=== PATIENT | female | born 1955 | race Caucasian/White ===

== ENCOUNTER → 2017-02-24 11:29 | Outpatient (CLI) | payer MEDICARE, SELFPAY ==
[2017-02-24 11:30] VITALS: BP 128/76; PULSE 69; RESP 16; TEMP 36.4; O2SAT 100; BMI 26.8
[2017-02-24 13:42] LABS: Absolute Lymphocyte Count 2.79 X10^3/ul (0.83-4.51); Absolute Neutrophil Count 3.2 X10^3/uL (2.0-7.7); Basophil# 0.07 X10^3/uL; Eosinophil# 0.26 X10^3/uL; Eosinophils% 3.8 % (0-5); Hematocrit 34.8 % (37-47); Hemoglobin 10.6 g/dl (12.0-15.0); Lymphocyte # 2.79 X10^3/ul (4.0); Lymphocyte % 40.9 % (19-41); Mean Corp Hgb Conc 30.5 g/gl (32-36); Mean Corpuscular Hgb 25.4 pg (27.0-32.0); Mean Corpuscular Volume 83.3 fL (81-99); Mean Platelet Vol. 10.7 fl (6.2-12.0); Monocyte# 0.49 X10^3/uL; Monocyte% 7.2 % (0-10); Neutrophil # 3.19 X10^3/uL (2.7-7.7); Neutrophil % 46.8 % (47-70); POSITIVE COUNT NO; POSITIVE DIFFERENTIAL NO; POSITIVE MORPHOLOGY NO; Platelet Count 309 K/mm3 (150-450); Red Blood Count 4.18 M/mm3 (4.2-5.4); White Blood Count 6.8 K/mm3 (4.4-11.0)
== END | disposition home or self-care (01) ==
PROVIDERS: Family Provider Physician Assistant; PCP Physician Assistant; Visit Provider Internal Medicine Endocrinology, Diabetes & Metabolism
DX: D50.9 Iron deficiency anemia, unspecified (principal); K90.49 Malabsorption due to intolerance, not elsewhere classified
CPT/HCPCS: 96365; 85025; J1756; J7050; A4216

== ENCOUNTER → 2017-03-03 12:20 | Outpatient (CLI) | payer MEDICARE, SELFPAY ==
[2017-03-03 12:45] VITALS: BP 123/77; PULSE 70; RESP 18; TEMP 36.6; O2SAT 98
== END | disposition home or self-care (01) ==
PROVIDERS: Family Provider Physician Assistant; PCP Physician Assistant; Visit Provider Internal Medicine Endocrinology, Diabetes & Metabolism
DX: D50.9 Iron deficiency anemia, unspecified (principal); K90.49 Malabsorption due to intolerance, not elsewhere classified
CPT/HCPCS: 96365; 96366; J1756; J7050; A4216

== ENCOUNTER → 2017-11-06 10:23 | Outpatient (CLI) | payer MEDICARE, SELFPAY ==
[2017-11-06 11:08] LABS: Absolute Lymphocyte Count 3.13 X10^3/ul (0.83-4.51); Absolute Neutrophil Count 4.8 X10^3/uL (2.0-7.7); Basophil# 0.04 X10^3/uL; Basophil% 0.5 % (0-1); Eosinophil# 0.21 X10^3/uL; Eosinophils% 2.4 % (0-5); Hematocrit 46.8 % (37-47); Lymphocyte # 3.13 X10^3/ul (4.0); Lymphocyte % 36.3 % (19-41); Mean Corp Hgb Conc 32.1 g/gl (32-36); Mean Corpuscular Hgb 28.5 pg (27.0-32.0); Mean Corpuscular Volume 88.8 fL (81-99); Mean Platelet Vol. 9.9 fl (6.2-12.0); Monocyte# 0.46 X10^3/uL; Monocyte% 5.3 % (0-10); Neutrophil # 4.76 X10^3/uL (2.7-7.7); Neutrophil % 55.3 % (47-70); Platelet Count 241 K/mm3 (150-450); RBC Distribution Width CV 12.7 % (11.6-14.6); Red Blood Count 5.27 M/mm3 (4.2-5.4); White Blood Count 8.6 K/mm3 (4.4-11.0)
[2017-11-06 11:09] LABS: POSITIVE COUNT NO; POSITIVE DIFFERENTIAL NO; POSITIVE MORPHOLOGY NO
[2017-11-06 11:37] LABS: Anion Gap 8 (5-15); BUN 18 mg/dL (7-18); BUN/Creat Ratio 18.7 RATIO (10-20); Chloride 103 mmol/L (98-107); Creatinine, Serum 0.96 mg/dL (0.55-1.02); EST Glomerular Filtration Rate 63 mL/min (>60); Est Glom Filt Rate - Afr Amer 76 mL/min (>60); Ferritin 75 ng/mL (8-252); Glucose 189 mg/dL (70-110); Potassium 3.5 mmol/L (3.5-5.1); Sodium Level 141 mmol/L (136-145)
[2017-11-06 11:38] LABS: Vitamin D,25 Hydroxy 17.4 ng/mL (19.95-100.01)
[2017-11-06 11:39] LABS: PTHIN 62.3 pg/mL (18.4-80.1)
== END ==
PROVIDERS: Family Provider Physician Assistant; PCP Physician Assistant; Visit Provider Internal Medicine Endocrinology, Diabetes & Metabolism
DX: D50.9 Iron deficiency anemia, unspecified (principal); E21.1 Secondary hyperparathyroidism, not elsewhere classified; E55.9 Vitamin D deficiency, unspecified
CPT/HCPCS: 36415; 80048; 82306; 82728; 83970; 85025

== ENCOUNTER → 2017-12-21 10:13 | Outpatient (CLI) | payer MEDICARE, SELFPAY ==
[2017-12-21 11:24] LABS: PTHIN 151.6 pg/mL (18.4-80.1)
[2017-12-21 11:28] LABS: BUN 10 mg/dL (7-18); Creatinine, Serum 0.67 mg/dL (0.55-1.02); Glucose 94 mg/dL (74-106)
[2017-12-21 11:29] LABS: ALB/GLOB Ratio 1.1 RATIO (0.9-2.4); AST(SGOT) 20 U/L (15-37); Alanine Aminotransfer ALT/SGPT 22 U/L (13-56); Albumin, Serum 3.7 g/dL (3.2-5.0); Alkaline Phosphatase 87 U/L (45-117); Anion Gap 8 (5-15); BUN/Creat Ratio 14.9 RATIO (10-20); Calcium,Total 8.7 mg/dL (8.5-10.1); Chloride 102 mmol/L (98-107); EST Glomerular Filtration Rate 95 mL/min (>60); Est Glom Filt Rate - Afr Amer 115 mL/min (>60); Globulin 3.5 g/dL (2.2-4.2); Potassium 3.6 mmol/L (3.5-5.1); Protein, Total 7.2 g/dL (6.4-8.2); Sodium Level 140 mmol/L (136-145)
== END ==
PROVIDERS: Family Provider Physician Assistant; PCP Physician Assistant; Visit Provider Internal Medicine Endocrinology, Diabetes & Metabolism
DX: E21.1 Secondary hyperparathyroidism, not elsewhere classified (principal); E83.51 Hypocalcemia
CPT/HCPCS: 36415; 80053; 83970

== ENCOUNTER → 2018-02-24 14:42 | Outpatient (CLI) | payer MEDICARE, SELFPAY ==
[2018-02-24 15:31] LABS: ALB/GLOB Ratio 0.9 RATIO (0.9-2.4); AST(SGOT) 15 U/L (15-37); Alanine Aminotransfer ALT/SGPT 18 U/L (13-56); Albumin, Serum 3.8 g/dL (3.2-5.0); Alkaline Phosphatase 130 U/L (45-117); Anion Gap 8 (5-15); BUN 13 mg/dL (7-18); BUN/Creat Ratio 13.2 RATIO (10-20); Calcium,Total 8.5 mg/dL (8.5-10.1); Chloride 100 mmol/L (98-107); Creatinine, Serum 0.98 mg/dL (0.55-1.02); EST Glomerular Filtration Rate 61 mL/min (>60); Est Glom Filt Rate - Afr Amer 74 mL/min (>60); Globulin 4.1 g/dL (2.2-4.2); Glucose 282 mg/dL (74-106); Potassium 4.1 mmol/L (3.5-5.1); Protein, Total 7.9 g/dL (6.4-8.2); Sodium Level 137 mmol/L (136-145)
[2018-02-24 15:39] LABS: PTHIN 186.2 pg/mL (18.4-80.1)
[2018-02-24 16:17] LABS: Vitamin D,25 Hydroxy 17.9 ng/mL (29.95-100.01)
== END ==
PROVIDERS: Family Provider Physician Assistant; PCP Physician Assistant; Visit Provider Internal Medicine Endocrinology, Diabetes & Metabolism
DX: E55.9 Vitamin D deficiency, unspecified (principal); E21.1 Secondary hyperparathyroidism, not elsewhere classified
CPT/HCPCS: 36415; 80053; 82306; 83970

== ENCOUNTER → 2018-05-19 12:43 | Outpatient (CLI) | payer MEDICARE, SELFPAY ==
[2018-05-19 13:43] LABS: ALB/GLOB Ratio 0.9 RATIO (0.9-2.4); AST(SGOT) 17 U/L (15-37); Alanine Aminotransfer ALT/SGPT 19 U/L (13-56); Albumin, Serum 3.5 g/dL (3.2-5.0); Alkaline Phosphatase 121 U/L (45-117); Anion Gap 6 (5-15); BUN 14 mg/dL (7-18); BUN/Creat Ratio 18.6 RATIO (10-20); Calcium,Total 8.6 mg/dL (8.5-10.1); Chloride 101 mmol/L (98-107); Creatinine, Serum 0.75 mg/dL (0.55-1.02); EST Glomerular Filtration Rate 83 mL/min (>60); Est Glom Filt Rate - Afr Amer 100 mL/min (>60); Glucose 107 mg/dL (74-106); Potassium 3.3 mmol/L (3.5-5.1); Protein, Total 7.5 g/dL (6.4-8.2); Sodium Level 138 mmol/L (136-145)
[2018-05-19 13:50] LABS: PTHIN 100.1 pg/mL (18.4-80.1)
[2018-05-19 13:51] LABS: Vitamin D,25 Hydroxy 24.8 ng/mL (29.95-100.01)
== END ==
PROVIDERS: Family Provider Physician Assistant; PCP Physician Assistant; Visit Provider Internal Medicine Endocrinology, Diabetes & Metabolism
DX: E55.9 Vitamin D deficiency, unspecified (principal); E11.65 Type 2 diabetes mellitus with hyperglycemia; E21.1 Secondary hyperparathyroidism, not elsewhere classified
CPT/HCPCS: 36415; 80053; 82306; 83970

== ENCOUNTER → 2018-07-27 11:52 | Outpatient (CLI) | payer MEDICARE, SELFPAY ==
[2018-07-27 13:05] LABS: AST(SGOT) 15 U/L (15-37); Alanine Aminotransfer ALT/SGPT 22 U/L (13-56); Albumin, Serum 3.8 g/dL (3.2-5.0); Alkaline Phosphatase 120 U/L (45-117); Anion Gap 7 (5-15); BUN 19 mg/dL (7-18); BUN/Creat Ratio 20.7 RATIO (10-20); Calcium,Total 9.3 mg/dL (8.5-10.1); Chloride 102 mmol/L (98-107); Cholesterol 193 mg/dL (200); Creatinine, Serum 0.92 mg/dL (0.55-1.02); EST Glomerular Filtration Rate 66 mL/min (>60); Est Glom Filt Rate - Afr Amer 80 mL/min (>60); Globulin 3.9 g/dL (2.2-4.2); Glucose 104 mg/dL (74-106); High Density Lipoprotein 77 mg/dL; Potassium 3.4 mmol/L (3.5-5.1); Protein, Total 7.7 g/dL (6.4-8.2); Sodium Level 138 mmol/L (136-145); Triglycerides 86 mg/dL; Very Low Density Lipoprotein 17 mg/dL (5-40)
[2018-07-27 13:08] LABS: Hemoglobin A1c 6.2 % (4.2-6.3)
[2018-07-27 13:09] LABS: Vitamin D,25 Hydroxy 25.1 ng/mL (29.95-100.01)
[2018-07-27 15:36] LABS: Microalbumin,Random Urine 34.9 mg/L (NO RANGE EST.); Microalbumin:Creatinine Ratio 16.7 mg/g CRE (<30 mg/g CRE)
== END ==
PROVIDERS: Family Provider Physician Assistant; PCP Physician Assistant; Referring Provider Internal Medicine Endocrinology, Diabetes & Metabolism; Visit Provider Internal Medicine Endocrinology, Diabetes & Metabolism
DX: E21.1 Secondary hyperparathyroidism, not elsewhere classified (principal); E11.65 Type 2 diabetes mellitus with hyperglycemia; E78.00 Pure hypercholesterolemia, unspecified; E55.9 Vitamin D deficiency, unspecified
CPT/HCPCS: 36415; 80053; 80061; 82043; 82306; 82570; 83036; 83970

== ENCOUNTER → 2018-11-08 14:13 | Outpatient (CLI) | payer MEDICARE, SELFPAY ==
[2018-11-08 15:58] LABS: ALB/GLOB Ratio 0.9 RATIO (0.9-2.4); AST(SGOT) 24 U/L (15-37); Alanine Aminotransfer ALT/SGPT 34 U/L (13-56); Albumin, Serum 3.8 g/dL (3.2-5.0); Alkaline Phosphatase 138 U/L (45-117); Anion Gap 9 (5-15); BUN 18 mg/dL (7-18); BUN/Creat Ratio 17.6 RATIO (10-20); Chloride 101 mmol/L (98-107); Creatinine, Serum 1.02 mg/dL (0.55-1.02); EST Glomerular Filtration Rate 58 mL/min (>60); Est Glom Filt Rate - Afr Amer 71 mL/min (>60); Globulin 4.1 g/dL (2.2-4.2); Glucose 185 mg/dL (74-106); Potassium 3.2 mmol/L (3.5-5.1); Protein, Total 7.9 g/dL (6.4-8.2); Sodium Level 140 mmol/L (136-145)
[2018-11-08 16:01] LABS: Vitamin D,25 Hydroxy 19.3 ng/mL (29.95-100.01)
[2018-11-08 16:02] LABS: PTHIN 87.5 pg/mL (18.4-80.1)
== END ==
PROVIDERS: Family Provider Physician Assistant; PCP Physician Assistant; Referring Provider Internal Medicine Endocrinology, Diabetes & Metabolism; Visit Provider Internal Medicine Endocrinology, Diabetes & Metabolism
DX: E55.9 Vitamin D deficiency, unspecified (principal); E11.65 Type 2 diabetes mellitus with hyperglycemia; E21.1 Secondary hyperparathyroidism, not elsewhere classified; M81.0 Age-related osteoporosis without current pathological fracture
CPT/HCPCS: 36415; 80053; 82306; 83970

== ENCOUNTER → 2018-11-11 10:01 | Outpatient (CLI) | payer MEDICARE, SELFPAY ==
[2018-11-11 10:56] LABS: (24 HR) Urine Calcium 229.8 mg/24 HR (42.0-353.0); 24HR UR TOTAL VOLUME 2275 ml; 24Hr.Lytes Total Volume 2275 mL; Calcium Urine pH Range 2; Urine Calcium (Random) 10.1 (Not Estab.)
[2018-11-11 10:57] LABS: 24H Urine Creat. Total Vol. 2.28 L; 24HR. Urine Creatinine 1.09 g/24 HR (0.70-1.90); Sodium 24 HR UR 175 mmol/24h (40-220); Urine Sodium 77 mmol/L (Not Establ.)
[2018-11-11 11:57] LABS: Urine Chloride 61 mmol/L (Not Establ.)
== END ==
PROVIDERS: Family Provider Physician Assistant; PCP Physician Assistant; Referring Provider Internal Medicine Endocrinology, Diabetes & Metabolism; Visit Provider Internal Medicine Endocrinology, Diabetes & Metabolism
DX: E11.65 Type 2 diabetes mellitus with hyperglycemia (principal); E21.1 Secondary hyperparathyroidism, not elsewhere classified; E55.9 Vitamin D deficiency, unspecified; M81.0 Age-related osteoporosis without current pathological fracture
CPT/HCPCS: 82340; 82436; 82570; 84133; 84300

== ENCOUNTER → 2018-11-30 12:38 | Outpatient (CLI) | payer MEDICARE, SELFPAY ==
--- NOTE | 2018-11-30 12:41 | BI_ITS ---
MAMMOGRAPHY - BILATERAL SCREENING REASON FOR EXAM: Female, 63 years old. Routine annual screening examination. PERTINENT HISTORY: Aunt with breast cancer. TECHNIQUE: Digital bilateral breast ranjit (3D mammographic acquisition) in the CC and MLO projections. 2-D mediolateral oblique (MLO) and craniocaudad (CC) views of both breasts were obtained. CAD: Full Field Digital Mammography with Computer Added Detection was performed. COMPARISON: Comparison is made with prior outside examination dated September 23, 2012. FINDINGS: Breast Composition: There are scattered areas of fibroglandular density. There are no dominant masses or suspicious calcifications. There is a 6.2 mm x 6 mm well-defined nodule in the inferior midportion of the left breast. Adjacent to this, a smaller similar appearing nodule seen. These most likely represent small cysts. Correlation with ultrasound is recommended. Battery pack of a pacemaker is seen in the left axilla. No other significant abnormalities are identified. BI/SCREENING MAMM (CAD), BILAT IMPRESSION: There are 2 small well-defined nodules in the inferior midportion of the left breast as described. Correlation with ultrasound is recommended. ASSESSMENT CATEGORY: BIRADS Category 0: Incomplete. Need additional imaging evaluation. A letter regarding these results will be sent to the patient by the facility within 30 days. Approximately 10% of breast cancers are not detected by mammography. A normal mammogram should not delay biopsy of a clinically suspicious abnormality. [id number] Electronically Signed: Phillip Love, at 14:54 EST , Service support ,
== END ==
PROVIDERS: Family Provider Physician Assistant; PCP Physician Assistant; Visit Provider Physician Assistant
DX: Z12.31 Encounter for screening mammogram for malignant neoplasm of breast (principal)
CPT/HCPCS: 77063; 77067

== ENCOUNTER → 2018-12-03 10:47 | Outpatient (CLI) | payer MEDICARE, SELFPAY ==
--- NOTE | 2018-12-03 10:49 | US_ITS ---
STUDY: ULTRASOUND BREAST - LEFT REASON FOR EXAM: Female, 63 years old. Abnormal screening mammogram. TECHNIQUE: Axial and longitudinal images of the LEFT breast were performed with a high resolution ultrasound transducer. COMPARISON: Comparison is made with prior mammogram dated November 30, 2018. FINDINGS: LEFT Breast: There is a 5 mm x 4 mm x 4 mm cyst at the 5:00 position of the breast at 4 cm from the nipple. Adjacent to this, there is a similar appearing cyst measuring 6 mm x 3 mm x 3 mm. US/Breast Limited Unilateral IMPRESSION: The mammographic abnormality corresponds to 2 small adjacent cysts. ASSESSMENT CATEGORY: BIRADS Category 2: Benign. A letter regarding these results will be sent to the patient by the facility within 30 days. Electronically Signed: Phillip Love, at 15:39 EST , Service support ,
== END ==
PROVIDERS: Family Provider Physician Assistant; PCP Physician Assistant; Referring Provider Physician Assistant; Visit Provider Physician Assistant
DX: R92.8 Other abnormal and inconclusive findings on diagnostic imaging of breast (principal)
CPT/HCPCS: 76642

== ENCOUNTER → 2019-07-06 15:31 | Outpatient (CLI) | payer MEDICARE, SELFPAY ==
[2019-07-06 18:06] LABS: Vitamin D,25 Hydroxy 25.1 ng/mL (29.95-100.01)
[2019-07-06 18:17] LABS: AST(SGOT) 20 U/L (15-37); Alanine Aminotransfer ALT/SGPT 21 U/L (13-56); Albumin, Serum 3.5 g/dL (3.2-5.0); Alkaline Phosphatase 140 U/L (45-117); Anion Gap 10 (5-15); BUN 21 mg/dL (7-18); BUN/Creat Ratio 23.7 RATIO (10-20); Calcium,Total 8.6 mg/dL (8.5-10.1); Chloride 105 mmol/L (98-107); Creatinine, Serum 0.89 mg/dL (0.55-1.02); EST Glomerular Filtration Rate 68 mL/min (>60); Est Glom Filt Rate - Afr Amer 83 mL/min (>60); Globulin 3.6 g/dL (2.2-4.2); Glucose 131 mg/dL (74-106); Potassium 3.8 mmol/L (3.5-5.1); Protein, Total 7.1 g/dL (6.4-8.2); Sodium Level 142 mmol/L (136-145); Thyroid Stim Hormone (TSH) 1.17 uIU/mL (0.358-3.74)
[2019-07-07 10:07] LABS: PTHIN 81.9 pg/mL (18.4-80.1)
== END ==
PROVIDERS: Family Provider Physician Assistant; PCP Physician Assistant; Referring Provider Internal Medicine Endocrinology, Diabetes & Metabolism; Visit Provider Internal Medicine Endocrinology, Diabetes & Metabolism
DX: E11.65 Type 2 diabetes mellitus with hyperglycemia (principal); E04.9 Nontoxic goiter, unspecified; E21.1 Secondary hyperparathyroidism, not elsewhere classified; E55.9 Vitamin D deficiency, unspecified
CPT/HCPCS: 36415; 80053; 82306; 83970; 84443

== ENCOUNTER 2019-11-21 17:17 | Observation (INO) | payer MEDICARE, SELFPAY ==
[2019-11-21] VITALS (11 sets, daily range): BP systolic 99–143; BP diastolic 61–96; PULSE 70–82; RESP 14–18; TEMP 36.4–36.9; O2SAT 95–99; BMI 32.3; BMI 31.4
--- NOTE | 2019-11-21 17:43 | EKG12_ITS ---
Test Reason : CP Blood Pressure : / mmHG Vent. Rate : 082 BPM Atrial Rate : 082 BPM P-R Int : 200 ms QRS Dur : 080 ms QT Int : 392 ms P-R-T Axes : -06 -08 029 degrees QTc Int : 457 ms Atrial-paced rhythm Nonspecific T-Wave Abnormality Abnormal ECG Confirmed by BRANDI STOUT, KAROL ([id number]), film and video editor SANG LONG ([id number]) on 11/23/2019 9:17:29 AM Referred By: Lam Wellington Confirmed By:KAROL PAZ MD
--- NOTE | 2019-11-21 17:50 | RAD_ITS ---
STUDY: X-RAY CHEST REASON FOR EXAM: Female, 64 years old. Chest pain TECHNIQUE: Frontal view of the chest COMPARISON: None. FINDINGS: Left chest pacemaker is present. The lungs are clear. There are no pleural effusions. There is no pneumothorax. The heart is normal in size. The visualized osseous structures are within normal limits. RAD/Chest 1 View (Portable) IMPRESSION: No acute thoracic pathology. Electronically Signed: Ike Fajardo, at 18:28 EST Tel , Service support ,
[2019-11-21] MEDS: Nitroglycerin SL (ED/IMG/CATH) 0.4 MG TABLET SUBLINGUAL ×2 (18:03→18:13)
[2019-11-21] MEDS: Aspirin 81 MG TAB.CHEW 324 MG PO (18:03)
[2019-11-21] MEDS: 0.9% Normal Saline 1,000 ML 150 ML IV (18:04)
[2019-11-21] MEDS: Acetaminophen 325 MG Tablet 650 MG PO (18:11)
[2019-11-21 18:13] LABS: Absolute Lymphocyte Count 2.06 X10^3/uL (0.83-4.51); Absolute Neutrophil Count 2.1 X10^3/uL (2.0-7.7); Basophil# 0.09 X10^3/uL; Basophil% 1.6 % (0-1); Eosinophil# 0.53 X10^3/uL; Eosinophils% 9.2 % (0-5); Hematocrit 40.9 % (37-47); Hemoglobin 12.9 g/dL (12.0-15.0); Lymphocyte # 2.06 X10^3/ul (4.0); Lymphocyte % 35.9 % (19-41); Mean Corp Hgb Conc 31.5 g/dL (32-36); Mean Corpuscular Hgb 26.8 pg (27.0-32.0); Mean Platelet Vol. 10.5 fl (6.2-12.0); Monocyte# 0.96 X10^3/uL; Monocyte% 16.7 % (0-10); NRBC Flagged by Analyzer 0 % (0-5); Neutrophil # 2.09 X10^3/uL (2.7-7.7); Neutrophil % 36.4 % (47-70); Platelet Count 218 K/mm3 (150-450); Red Blood Count 4.81 M/mm3 (4.2-5.4); White Blood Count 5.7 K/mm3 (4.4-11.0)
[2019-11-21 18:25] LABS: D-Dimer Quantitative (DVT/PE) 0.93 FEU/ug/m (0.27-0.49)
[2019-11-21 18:30] LABS: Anion Gap 5 (5-15); BUN 13 mg/dL (7-18); BUN/Creat Ratio 14.1 RATIO (10-20); Calcium,Total 8.4 mg/dL (8.5-10.1); Chloride 105 mmol/L (98-107); Creatinine, Serum 0.92 mg/dL (0.55-1.02); EST Glomerular Filtration Rate 65 mL/min (>60); Est Glom Filt Rate - Afr Amer 79 mL/min (>60); Estimated Creatinine Clearance 54.05 ml/min; Glucose 252 mg/dL (74-106); Potassium 3.5 mmol/L (3.5-5.1); Sodium Level 137 mmol/L (136-145)
[2019-11-21] MEDS: Nitroglycerin Oint 1 INCH PACKET TRANSDERM. ×2 (18:41→23:12)
--- NOTE | 2019-11-21 19:31 | CT_ITS ---
STUDY: CTA CHEST REASON FOR EXAM: Female, 64 years old. CHEST PAIN, ELEVATED D-DIMER, AND RIGHT ARM PAIN RADIATION DOSAGE (If Supplied By Facility): CTDIvol = ( 14.93 ) mGy, DLP = ( 473.77 ) mGycm TECHNIQUE: The examination was performed with the intravenous administration of IV 75mL Isovue-370. Post-processing of the angiographic images was performed, with multiplanar reformation and 3D reconstruction. Individualized dose optimization techniques were used for this CT. COMPARISON: None. FINDINGS: There are bilateral groundglass opacities. Normal enhancement of the main pulmonary artery and right and left pulmonary arteries. Normal enhancement of the bilateral peripheral pulmonary arteries. There is no demonstrated pulmonary embolism. Normal thoracic aorta and visualized great vessels. There is no demonstrated aortic dissection. Normal heart and pericardium. There is a cardiac pacer device in place. Normal mediastinum. Normal hilar regions. Normal visualized trachea and bronchi. The lungs are well expanded. Normal pulmonary parenchyma. Normal pleura. Normal chest wall structures. There are degenerative changes of thoracic spine. Limited images of the upper abdomen demonstrate postsurgical changes of the stomach. CT/CTA Chest W/WO Contrast IMPRESSION: No demonstrated pulmonary embolism or arterial dissection. Bilateral groundglass opacities, a nonspecific finding may reflect mild edema. Electronically Signed: Ramona Schilling MD at 20:51 EST Tel , Service support ,
--- NOTE | 2019-11-21 20:43 | PCM.HP.STD ---
Problem List (1) Chest pain Status: Acute (2) Depression Status: Chronic Qualifiers: Depression Type: unspecified Qualified Code(s): F32.9 - Major depressive disorder, single episode, unspecified History of Present Illness Date of Admission: 11/21/19 Chief Complaint: chest pain The patient is a 64 year old F with a significant history of obesity; gastric bypass; A. fib status post pacemaker and on sotalol; who presents emergency department with substernal chest pain that started on the same day of presentation. She rated her pain as a 7.5 on a scale of 1-10. She describes her pain as a tightness. The pain radiates to her right arm. Associated with her symptoms is nausea without vomiting. Also she had shortness of breath. She correlates her pain with palpitations. She denies any aggravating or elevating factors while at home. At emergency department patient was given nitroglycerin tablet;and then nitroglycerin paste and this took her pain away. At the emergency department troponin was negative. D-dimer was elevated. A chest CTA at the Emergency department showed bilateral groundglass opacities Past Medical History Past Medical History (Chronic Problems): Chronic Problems Depression (Chronic) Allergies adhesive tape Adverse Reaction (Verified 04/29/17 20:30) Hives Home Medications: Ambulatory Orders Medication Instructions Recorded Sertraline HCl 100 mg PO QHS 01/16/17 Calcium Phosphate Trib/Vit D3 2 each PO DAILY 02/24/17 [Citracal + D3 Gummies] Ergocalciferol [Vitamin D] 50,000 unit PO DAILY 02/24/17 Calcitriol [Rocaltrol] 0.25 mcg PO DAILY 04/29/17 Gabapentin [Neurontin] 300 mg PO DAILY 11/21/19 Pantoprazole Sodium [Protonix] 40 mg PO DAILY 11/21/19 Ropinirole HCl [Requip] 1 mg PO QHS 11/21/19 Sotalol HCl [Sotalol AF] 80 mg PO BID 11/21/19 Surgical History: appendectomy, cholecystectomy, - - s/p gastric bypass, Jacque fundoplication, EGD, colonoscopy in 2016 Psychiatric History: Depression LOSS PREVENTION LEAD History: No pertinent LOSS PREVENTION LEAD history Lives: Spouse/ Significant Other Smoking Status: Former smoker - *Family History Paternal History Items: Dementia, Heart Disease Maternal History Items: Cancer, Diabetes Review of Systems Constitutional: Denies: Chills, Fever, Weight Change HEENT: Denies: Head Aches, Sinus Congestion, Sinus Drainage Cardiovascular: Reports: Chest Tightness, Palpitations Respiratory: Reports: Shortness of Breath. Denies: Cough, Shortness of breath at rest, Sputum production Gastrointestinal: Reports: Nausea. Denies: Abdominal Pain, Vomiting Genitourinary: Denies: Dysuria Musculoskeletal: Denies: Joint Pain, Joint Tenderness Skin: Denies: Rash, Wounds Neurological: Denies: Numbness, Tingling, Focal weakness Psychiatric: Denies: Anxiety, Depression, Homicidal Ideations, Suicidal Ideations Hematologic/ Lymphatic: Denies: Easy Bruising, Easy Bleeding VTE Information - Inpt Only VTE Present on Admission: No VTE Mechan Device Prophylaxis: None VTE Pharm Prophylaxis ordered?: Yes Patient Problems: Active and Suspected Problems Chest pain (Acute) - Physical Exam Vitals/I&O's: Vital Signs Temp Pulse Resp BP Pulse Ox 98.4 F 70 17 123/75 H 96 11/21/19 17:18 11/21/19 19:00 11/21/19 19:00 11/21/19 19:00 11/21/19 19:00 Oxygen Flow Rate (L/min) 2 Oxygen Delivery Method Room Air Weight: 85.3 kg Body Mass Index (BMI) 32.3 General: Alert, Oriented x3, Cooperative HEENT: Atraumatic, PERRLA, EOMI, Normocephalic Neck: Supple, No JVD, Negative Carotid Bruits Lungs: Clear to auscultation, Normal air movement Cardiovascular: Regular rate, Normal S1, Normal S2, No murmurs Abdomen: Bowel Sounds Present, Soft, Non Tender Extremities: No edema, Capillary Refill Less than 3 Seconds Skin: No rashes, No breakdown Musculoskeletal: No Tenderness to Palpation of Joints or Extremities Neurological: Cranial nerves II-XII grossly intact Psych/Mental Status: Normal Affect, Appropriate Laboratory Results 11/21/19 17:30: WBC 5.7, RBC 4.81, Hgb 12.9, Hct 40.9, MCV 85.0, MCH 26.8 L, MCHC 31.5 L, RDW Std Deviation 43.0, RDW Coeff of Sy 14.0, Plt Count 218, MPV 10.5, Immature Gran % (Auto) 0.200, Neut % (Auto) 36.4 L, Lymph % (Auto) 35.9, [place] % (Auto) 16.7 H, Eos % (Auto) 9.2 H, Baso % (Auto) 1.6 H, Absolute Neuts (auto) 2.1, Absolute Lymphs (auto) 2.06, Nucleated RBC % 0 11/21/19 17:30: D-Dimer Quant (PE/DVT) 0.93 H* 11/21/19 17:30: Sodium 137, Potassium 3.5, Chloride 105, Carbon Dioxide 27.0, Anion Gap 5, BUN 13, Creatinine 0.92, Estim Creat Clear Calc 54.05, Est GFR (MDRD) Af Amer 79, Est GFR (MDRD) Non-Af 65, BUN/Creatinine Ratio 14.1, Glucose 252 H, Calcium 8.4 L, Troponin I < 0.015 Current Medications Sodium Chloride () 1,000 mls @ 150 mls/hr IV .Q6H40M DIANDRA Last Admin: 11/21/19 18:04 Dose: 150 mls/hr Documented by: Nitroglycerin (Nitrostat) 0.4 mg SUBLINGUAL Q5M PRN PRN Reason: Chest pain Last Admin: 11/21/19 18:13 Dose: 0.4 mg Documented by: Assessment/Plan All Active Problems Chest pain (Acute) The patient is a 64 year old F with a significant history of obesity; gastric bypass; A. fib status post pacemaker and on sotalol; who presents emergency department with substernal chest pain that started on the same day of presentation Chest pain Place on a monitored bed at [facility] CXR independently reviewed confirms no acute cardiopulmonary process. Radiologist impression of chest CTA:Bilateral groundglass opacities, and no specific finding may reflect mild pulmonary edema. Will get BNP. Obtain old records from [facility]. Patient reported that she had a stress test about 2019 at [facility] it was unremarkable. Also she has had an echocardiogram. Also she reported that about 10 years ago she had cardiac cath at [facility].. ASA 81 mg p.o. daily Continue patient on nitroglycerin paste started at the emergency department. We will check lipid panel. Statin: Start on Lipitor 80 mg daily. Serial cardiac enzymes Stat EKG as needed for chest pain Heart score is 3 ;(moderately suspicious; age 45-64; 1-2 risk factors) which is low risk but with nitroglycerin taking her pain away the case were discussed with cardiology. Cardiology will follow patient. EKG independently reviewed confirms a paced rhythm. Hyperglycemia Patient reports that she is prediabetic. Blood glucose at the hospital is elevated. Start patient on correction scale insulin. Will get A1c. Chronic atrial fibrillation Patient with pacemaker. Sotalol continued. Is unclear why patient is not on anticoagulation. Of note in the past she had a GI bleed and was admitted at our hospital (01/16/2017 to 01/19/2017). She reported previously she was on Pradaxa but because of cost the Pradaxa was stopped. Patient to discuss long-term anticoagulation with PCP on discharge. Morbid obesity Complicates care DVT prophylaxis Subcutaneous heparin. Code Visit OBSV E&M: [id number] Initial observation care L3
--- NOTE | 2019-11-21 21:02 | ED.DCSUM_ITS ---
- ER Visit Summary Date of Service: 11/21/19 Chief Complaint: [Chest pain] History of Present Illness: The patient is a 64 F [presents to the emergency department complaint of chest discomfort that started earlier today. Patient describes a pressure and heaviness in the left side of her chest. Patient mookie cribes intermittent pain into her right arm. Patient feels somewhat short of breath especially with cough. She has a mild nausea with it. Patient states that she has been fatigued for about a month or so. Patient states that she has a history of A. fib and has a pacemaker for it. Patient was started on sotalol recently. Patient's last heart cath she believes was in 2014 and was unremarkable. Patient also had a stress test at the end of 2018 that was unremarkable. Patient denies recent travel or surgery.] Physical Examination: [HEENT-PERRLA, EOMI. Cranial nerves II through XII grossly intact. TMs clear. Mucous membranes moist. No adenopathy. Cardiovascular-regular rate and rhythm without murmur or ectopy Lungs-clear to auscultation, chest wall stable without crepitus or subcu emphysema Abdomen-normoactive bowel sounds, soft, nontender, no rebound or rigidity, no peritoneal signs. Extremities-intact ?4, normal range of motion, normal pulses, atraumatic] Test Results: [EKG obtained arrival showed an atrial paced rhythm with a ventricular rate of 82 bpm with no acute ST segment changes. CBC with differential was unremarkable. Chemistries unremarkable. Troponin less than 0.15. D-dimer was 0.[address] of the chest was obtained which showed no evidence of PE or dissection. Chest x-ray initially obtained was unremarkable.] Emergency Department Course and Treatment: [Received aspirin and received sublingual nitro with essentially resolved her pain and resolved pain in the right arm. Patient had an inch of Nitropaste paste placed to the anterior chest wall.] Treatment Plan: [Admit for further work-up and evaluation of the chest pain] Disposition: [Admit] Impression: [Chest pain-rule out acute findings in the] This note was generated with [employer] dictation software. It may contain incorrect words, spelling, and punctuation that were not noted in review of the chart prior to signing ED Disposition - Plan for ED Patient: Referrals: Radha Howard PA [Primary Care Provider] -
--- NOTE | 2019-11-21 21:53 | EKG12_ITS ---
Test Reason : CP ADMIT Blood Pressure : / mmHG Vent. Rate : 072 BPM Atrial Rate : 072 BPM P-R Int : 310 ms QRS Dur : 072 ms QT Int : 570 ms P-R-T Axes : 028 -05 037 degrees QTc Int : 624 ms Atrial-paced rhythm with prolonged AV conduction Nonspecific T wave abnormality Abnormal ECG When compared with ECG of 21-NOV-2019 17:20, MANUAL COMPARISON REQUIRED, DATA IS UNCONFIRMED Confirmed by GUSTABO PRADO ([id number]), assistant editor SANG LONG ([id number]) on 11/24/2019 9:53:27 AM Referred By: Lam Wellington Confirmed By:GUSTABO PRADO
[2019-11-21 22:52] LABS: Cholesterol 167 mg/dL (200); High Density Lipoprotein 65 mg/dL; Triglycerides 226 mg/dL; Very Low Density Lipoprotein 45 mg/dL (5-40)
[2019-11-21 23:01] LABS: Bedside Glucose 107 mg/dL (70-110)
[2019-11-21 23:04] LABS: Hemoglobin A1c 6.5 % (4.2-6.3)
[2019-11-21] MEDS: Sotalol Hydrochloride 80 MG Tablet PO (23:13)
[2019-11-21] MEDS: Heparin Injection (Vial) 5,000 UNIT/ML VIAL 5000 UNIT SC (23:13)
[2019-11-21] MEDS: Atorvastatin Calcium 80 MG Tablet PO (23:14)
[2019-11-21] MEDS: Sertraline 100 MG Tablet PO (23:14)
[2019-11-21] MEDS: Gabapentin 300 MG Capsule PO (23:16)
[2019-11-21] MEDS: Pramipexole Di-HCl 0.5 MG Tablet PO (23:17)
[2019-11-22] VITALS (20 sets, daily range): BP systolic 92–135; BP diastolic 54–84; PULSE 68–79; RESP 16–18; TEMP 36.5–37.1; O2SAT 92–98
[2019-11-22] MEDS: Nitroglycerin Oint 1 INCH PACKET TRANSDERM. (06:35)
[2019-11-22] MEDS: Acetaminophen 325 MG Tablet 650 MG PO (06:44)
[2019-11-22 06:45] LABS: Bedside Glucose 105 mg/dL (70-110)
--- NOTE | 2019-11-22 08:15 | NURSING ---
removed nitro patch r/t headache
[2019-11-22] MEDS: Pantoprazole Sodium 40 MG Tablet PO (08:59)
[2019-11-22] MEDS: Calcitriol 0.25 MCG Capsule PO (08:59)
[2019-11-22] MEDS: Calcium Carb/Vitamin D 1 TABLET Tablet PO (08:59)
[2019-11-22] MEDS: Aspirin E.C. 81 MG Tablet PO (08:59)
[2019-11-22 09:10] LABS: BNP,B-Type NATRIURETIC PEPTIDE 40.2 pg/mL (0-100)
--- NOTE | 2019-11-22 09:38 | PCM.CONS.C ---
<Anel Sandoval M - Last Filed: 11/22/19 09:59> Problem List (1) Chest pain Status: Acute (2) Sick sinus syndrome Status: Chronic (3) PAF (paroxysmal atrial fibrillation) Status: Chronic (4) Pacemaker Status: Chronic Reason for Consult Date of Consultation: 11/22/19 Reason for Consultation: Chest pain History of Present Illness: This is a 64-year-old female that we were asked to consult on for chest discomfort. Patient presented to the emergency room yesterday for chest discomfort. She states that her chest discomfort was to the left of her sternum and then radiated down to the right side of her chest. This would last approximately 1 minute at a time. This lasted on and off all day. Patient's troponins were negative x3. D-dimer was elevated she did have a CTA which was negative for PE. Patient does have a history of paroxysmal atrial fibrillation, sick sinus syndrome with pacemaker placement in 2010, obesity and gastric bypass surgery. She also has a history of fibromyalgia, she is on disability for PTSD. Patient states that over the last year she has had chest discomfort. She states that yesterday was different in the fact that it radiated down her arm. She states that previously it was substernal and would radiate to her back. She initially had a stress test at [facility] in the winter 2018 which she states was negative for ischemia. She was then following up with her shuttlecock feather trimmer at [facility]. They did do a stress test in September 2019 which was negative for ischemia. They also did an echocardiogram which demonstrated normal ejection fraction. They felt that this discomfort was not cardiac and could be GI. She states that she did see a computational sciences professor, she states that she did have an upper endoscopy which was normal. She also states that over the last 2 months that she has felt fatigued and just not felt right. She was started on sotalol approximately at that time for her atrial fibrillation. She states that sometimes she is aware of her atrial fibrillation in which it is beating fast. She also states that at other times she notes that her heart feels like it is stopping even though she has a pacemaker. There was a question of whether or not she might undergo ablation if she did not tolerate the sotalol. She also notes that over the last several months she has had issues with her diastolic pressures. She cannot recall what medications that her shuttlecock feather trimmer have had her on. Past Medical History Allergies/Adverse Reactions: Allergies adhesive tape Adverse Reaction (Verified 04/29/17 20:30) Hives Home Medications: Ambulatory Orders Medication Instructions Recorded Sertraline HCl 100 mg PO QHS 01/16/17 Calcium Phosphate Trib/Vit D3 2 each PO DAILY 02/24/17 [Citracal + D3 Gummies] Ergocalciferol [Vitamin D] 50,000 unit PO DAILY 02/24/17 Calcitriol [Rocaltrol] 0.25 mcg PO DAILY 04/29/17 Gabapentin [Neurontin] 300 mg PO QHS 11/21/19 Pantoprazole Sodium [Protonix] 40 mg PO DAILY 11/21/19 Ropinirole HCl [Requip] 1 mg PO QHS 11/21/19 Sotalol HCl [Sotalol AF] 80 mg PO BID 11/21/19 Past Medical History (Chronic Problems): Chronic Problems Sick sinus syndrome (Chronic) PAF (paroxysmal atrial fibrillation) (Chronic) Pacemaker (Chronic) Depression (Chronic) Surgical History: appendectomy, cholecystectomy, - - s/p gastric bypass, Jacque fundoplication, EGD, colonoscopy in 2016 Psychiatric History: Depression ELECTRONIC WIRER History: No pertinent ELECTRONIC WIRER history - *Family History Paternal History Items: Dementia, Heart Disease Maternal History Items: Cancer, Diabetes Lives: Spouse/ Significant Other Smoking Status: Former smoker Review of Systems - Review of Systems General: Reports: Fatigue. Denies: Fever, Chills, Anorexia, Weight Loss HEENT: Reports: Head Aches, Sinus Drainage, Sinus Congestion. Denies: Vision Change Cardiovascular: Reports: Chest Discomfort - see HPI, Shortness of Breath - uses nebulizer prn, Palpitations, Lightheadedness, Dizziness Respiratory: Reports: Cough Gastrointestinal: Reports: Epigastric Discomfort Genitourinary: Denies: Dysuria Muscoloskeletal: Reports: Myalgias, Joint Tenderness Skin: Denies: Rash Neurological: Reports: Dizziness Psychiatric: Reports: Anxiety, Depression Objective: Vital Signs Temp Pulse Resp BP Pulse Ox 98.5 F 78 16 92/70 96 11/22/19 09:32 11/22/19 09:32 11/22/19 09:32 11/22/19 09:32 11/22/19 09:32 Oxygen Flow Rate (L/min) 2 Oxygen Delivery Method Room Air Weight: 182 lb 12.211 oz Body Mass Index (BMI) 31.4 Intake and Output for Last 24 Hours 11/20/19 11/21/19 11/22/19 23:59 23:59 23:59 Intake Total 765 / 765 0 / 0 Balance 765 / 765 0 / 0 General: Awake, Alert, Oriented x 3, Obese HEENT: Atraumatic, Normocephalic, PERRL, EOMI Oral: Moist Mucosa Neck: Supple, Good ROM, No Lymph Node Enlargement, No JVD Lungs: Clear to auscultation Cardiovascular: Regular Rhythm, Normal S1, Normal S2, No Murmurs, No Rubs, No Gallops Vascular: No Carotid Bruits, Normal Radial Pulses, Normal Posterior Tibial Pulses Abdomen: Bowel Sounds Present, Soft, Non Tender, Obese Extremities: No Cyanosis, No Clubbing, No edema Skin: No Rashes Neurological: No Focal Motor or Sensory Deficit, CN II-XII Intact Psych/Mental Status: Appropriate 11/21/19 17:30: WBC 5.7, RBC 4.81, Hgb 12.9, Hct 40.9, MCV 85.0, MCH 26.8 L, MCHC 31.5 L, Plt Count 218, MPV 10.5, Immature Gran % (Auto) 0.200, Neut % (Auto) 36.4 L, Lymph % (Auto) 35.9, Jackson % (Auto) 16.7 H, Eos % (Auto) 9.2 H, Baso % (Auto) 1.6 H, Absolute Neuts (auto) 2.1, Nucleated RBC % 0 11/21/19 17:30: D-Dimer Quant (PE/DVT) 0.93 H* 11/21/19 17:30: Sodium 137, Potassium 3.5, Chloride 105, Carbon Dioxide 27.0, Anion Gap 5, BUN 13, Creatinine 0.92, Est GFR (MDRD) Af Amer 79, Est GFR (MDRD) Non-Af 65, BUN/Creatinine Ratio 14.1, Glucose 252 H, Calcium 8.4 L, Troponin I < 0.015 11/21/19 17:30: Triglycerides 226 H, Cholesterol 167, LDL Cholesterol 57, VLDL Cholesterol 45 H, HDL Cholesterol 65 11/21/19 17:30: B-Natriuretic Peptide 40.2 11/21/19 17:30: Hemoglobin A1c 6.5 H 11/21/19 22:22: Troponin I < 0.015 11/22/19 00:55: Troponin I < 0.015 Rhythm: EKG: ECHO: Stress Test: Cardiac Cath: PCI: CT Surgery: Holter monitor: EPS: PPM: CXR: Chest CT Scan: Assessment/Plan 1. Chest discomfort: Patient's troponins were negative x3. However with her continued chest discomfort despite 2 negative stress test at outside hospitals in 2019 would like to pursue a diagnostic heart catheterization for further evaluation of her coronary anatomy. If this is negative patient can then be evaluated for other causes of her discomfort. With her history of fibromyalgia it could be muscular skeletal or with her history of gastric bypass it could be related to GI issues. With her concerns over her history of elevated blood pressure readings we will continue to monitor and adjust medications if need be. 2. Paroxysmal atrial fibrillation: Patient is currently on sotalol for this. She is not anticoagulated. corn detasseler has not demonstrated episodes of atrial fibrillation. 3. Pacemaker placement: Patient is being followed at [facility] for this. <Dario Maldonado - Last Filed: 11/22/19 11:13> Reason for Consult History of Present Illness: The patient is a 64 year old F [] Objective: Vital Signs Temp Pulse Resp BP Pulse Ox 98.5 F 78 16 92/70 96 11/22/19 09:32 11/22/19 09:32 11/22/19 09:32 11/22/19 09:32 11/22/19 09:32 Oxygen Flow Rate (L/min) 2 Oxygen Delivery Method Room Air Weight: 182 lb 12.211 oz Body Mass Index (BMI) 31.4 Intake and Output for Last 24 Hours 11/20/19 11/21/19 11/22/19 23:59 23:59 23:59 Intake Total 765 / 765 0 / 0 Balance 765 / 765 0 / 0 11/21/19 17:30: WBC 5.7, RBC 4.81, Hgb 12.9, Hct 40.9, MCV 85.0, MCH 26.8 L, MCHC 31.5 L, Plt Count 218, MPV 10.5, Immature Gran % (Auto) 0.200, Neut % (Auto) 36.4 L, Lymph % (Auto) 35.9, Jackson % (Auto) 16.7 H, Eos % (Auto) 9.2 H, Baso % (Auto) 1.6 H, Absolute Neuts (auto) 2.1, Nucleated RBC % 0 11/21/19 17:30: D-Dimer Quant (PE/DVT) 0.93 H* 11/21/19 17:30: Sodium 137, Potassium 3.5, Chloride 105, Carbon Dioxide 27.0, Anion Gap 5, BUN 13, Creatinine 0.92, Est GFR (MDRD) Af Amer 79, Est GFR (MDRD) Non-Af 65, BUN/Creatinine Ratio 14.1, Glucose 252 H, Calcium 8.4 L, Troponin I < 0.015 11/21/19 17:30: Triglycerides 226 H, Cholesterol 167, LDL Cholesterol 57, VLDL Cholesterol 45 H, HDL Cholesterol 65 11/21/19 17:30: B-Natriuretic Peptide 40.2 11/21/19 17:30: Hemoglobin A1c 6.5 H 11/21/19 22:22: Troponin I < 0.015 11/22/19 00:55: Troponin I < 0.015 Rhythm: EKG: ECHO: Stress Test: Cardiac Cath: PCI: CT Surgery: Holter monitor: EPS: PPM: CXR: Chest CT Scan: Assessment/Plan Addendum: Date: The patient was independently evaluated/examined. The patient reports a history of cardiovascular disease with atrial fibrillation and sick sinus syndrome and subsequently a permanent pacemaker placement. She has been on a variety of medications. She has been followed by cardiology in [place], [place]. As part of her concern she has had recurrent chest discomfort. She has undergone noninvasive and invasive studies in the past. Based upon her previous studies they have been reported as negative for any evidence of CAD. She also has a history of gastrointestinal disease. This has included a hiatal hernia and gastric bypass surgery. She presented with concerning chest discomfort. She underwent cardiac enzymes which have been negative. Her ECG has demonstrated the appearance of underlying electronic atrial pacemaker with a nonspecific T wave abnormality. On examination her lungs are clear. Her cardiovascular exam demonstrates a regular rhythm with a normal S1 and S2. Based upon her ongoing symptoms she has been referred to cardiology for consideration for diagnostic cardiac catheterization as no other definitive noncardiac etiology has been designated to explain her symptoms. The cardiovascular evaluation/cardiac catheterization procedure including the pros and cons and risks and benefits were discussed with the patient. She is agreeable to this approach. In the interim she does need to continue evaluation care of her defined cardiovascular disease including her history of atrial fibrillation and her permanent pacemaker. She should continue to follow with her cardiology team/electrophysiology team as she states that she is being considered for not only medical management but potentially some form of EPS/RFA procedure. Comment: The patient's case has been discussed and reviewed with the patient, previously with the [facility] hospitalist team admitting the patient, and with ABRAHAM Johns. This note was generated using a voice recognition system and there may be incorrect words, spelling or punctuation that were not noted when reviewing the office note prior to saving.
--- NOTE | 2019-11-22 11:09 | CASEMGMT ---
According to the [facility] website, the following are in-network tertiary facilities: [facility], [facility], [facility], [facility], and [facility]. Lizbeth FLANNERY CM
[2019-11-22] MEDS: Sotalol Hydrochloride 80 MG Tablet PO (12:36)
--- NOTE | 2019-11-22 12:44 | CL.D_ITS ---
Patient Name: JAVIER PIÑA Study Date: 11/22/2019 Performing: Dario Maldonado MD Ht: 64 inches 163 cm : 1955 Wt: 183.2 lbs 83 kg Age: 64 Gender: female BSA: 1.89 PROCEDURE(S) PERFORMED [id number]/LV CLINICAL PROFILE AND INDICATIONS Indications: Worsening Angina, Suspected CAD Heart Failure: None Stress/Imaging Stress/Image Study Performed: No Angina Classification Anginal Classification w/in 2 Weeks: CCS IV CAD Presentations: Unstable angina. CONCLUSIONS Elevated Left Ventricular End Diastolic Pressure Normal LV size, wall motion,and systolic function LVEF: by LV gram 65 % Normal coronary arteries RECOMMENDATIONS Risk factor modification Medical therapy Follow up with primary care physician DESCRIPTION OF PROCEDURE The patient arrived to the procedure lab. The risks and benefits of the procedure as well as a full d escription of our services here and current unavailability of surgical backup were fully explained to the patient and/or their significant other prior to the catheterization. The Timeout was completed, verifying the correct patient and procedure. The patient's procedural site was prepped and draped in the usual fashion. Local anesthetic was given subcutaneously to right radial region with Lidocaine 2% . Using a modified Seldinger technique, arterial access was obtained via the right radial artery, a 6 Fr sheath was inserted. Right Coronary Artery selective angiography was then performed in multiple v iews using a 5 Fr. 4.0 Bethalto catheter. Left Coronary Artery selective angiography was performed in mu ltiple views using a 5 Fr. 4.0 Bethalto catheter. Left Ventriculography was performed in WU projection using a 5 Fr. Pigtail catheter. LV to AO pullback pressures were then recorded.The arterial sheath was pulled and a TR Band was applied for hemostasis w/ 10ml air CORONARY ANGIOGRAPHY DOMINANCE: Right Dominant LEFT HEART ASSESSMENT Left Ventricular Ejection Fraction: by LV Gram 65 % Normal LV wall motion Elevated Left Ventricular End Diastolic Pressure LVEDP: 22 mmHg LEFT ANTERIOR DESCENDING ARTERY: Angiographically normal CIRCUMFLEX ARTERY: Angiographically normal RIGHT CORONARY ARTERY: Angiographically normal AORTIC ROOT: Angiographically normal COMPLICATIONS No Complications PROCEDURE MEDICATIONS Versed 1 mg IV Fentanyl 50 mcg IV Oxygen: 2 L/min via nasal cannula Heparin diluted in 23cc Heparinized saline. Patient given 10cc IA of this solution. 11/22/2019 11:47: 11 Verapamil 2.5mg, Ntg 100mcgs, 2000 units of Heparin diluted in 23cc Heparinized saline. Patient give n 10cc IA of this solution. 11/22/2019 11:47:11 SUMMARY OF HEMODYNAMIC DATA Time AIR REST ECG 11:31:14 AO 129/77 (101) SA 11:51:38 LV 164/-1, 25 12:01:28 LV 162/-5, 22 12:01:34 LV 156/-3, 22 12:02:20 LVp 173/-6, 24 12:02:23 AOp 168/95 (126) 12:02:28 Signed By Dario Maldonado MD On 11/22/2019 12:44:18 Dario Maldonado MD
[2019-11-22 12:46] LABS: Bedside Glucose 80 mg/dL (70-110)
[2019-11-22] MEDS: 0.9% Normal Saline 1,000 ML 75 ML IV (13:15)
--- NOTE | 2019-11-22 13:56 | DCINST_ITS ---
- Discharge Diagnoses Current Active Problems: Current Active and Chronic Problems Chest pain (Acute) Sick sinus syndrome (Chronic) PAF (paroxysmal atrial fibrillation) (Chronic) Pacemaker (Chronic) You will use the following diet at home:: Other - avoid foods, such as steak, that see to aggravate your symptoms. Allergies/Adverse Reactions: Allergies adhesive tape Adverse Reaction (Verified 04/29/17 20:30) Hives Medications to take at Discharge Sertraline HCl 100 mg PO QHS 01/16/17 Calcium Phosphate Trib/Vit D3 [Citracal + D3 Gummies] 2 each PO DAILY 02/24/17 Ergocalciferol [Vitamin D] 50,000 unit PO DAILY 02/24/17 Calcitriol [Rocaltrol] 0.25 mcg PO DAILY 04/29/17 Gabapentin [Neurontin] 300 mg PO QHS 11/21/19 Pantoprazole Sodium [Protonix] 40 mg PO DAILY 11/21/19 Ropinirole HCl [Requip] 1 mg PO QHS 11/21/19 Sotalol HCl [Sotalol AF] 80 mg PO BID 11/21/19 Primary Care Physician: Radha Howard PA [Primary Care Provider] - Within 2 Weeks Test Results: Test results from this visit will be discussed in further detail at your follow- up appointment, if applicable. Please Follow Up With: Sabiha When: 1-2 months Please Follow Up With: [facility] cardiology When: 1-2 months Proposed Discharge Date: 11/22/19
--- NOTE | 2019-11-22 13:59 | PCM.DC.SUM ---
Discharge Date and Diagnosis - Problem List Patient Problems: Active and Suspected Problems Chest pain (Acute) Date of Admission: 11/21/19 Date of Discharge: 11/22/19 - Primary Discharge Diagnosis Active and Suspected Problems Chest pain (Acute) - Secondary Discharge Diagnosis Chronic Problems Sick sinus syndrome (Chronic) PAF (paroxysmal atrial fibrillation) (Chronic) Pacemaker (Chronic) Depression (Chronic) Hospital Course and Treatment Imaging Results: Clinical Impression(s) from Imaging Studies Chest X-Ray 11/21/19 17:50 IMPRESSION: No acute thoracic pathology. Electronically Signed: Ike Fajardo, at 18:28 EST Tel , Service support , Chest CTA 11/21/19 19:31 IMPRESSION: No demonstrated pulmonary embolism or arterial dissection. Bilateral groundglass opacities, a nonspecific finding may reflect mild edema. Electronically Signed: Ramona Schilling MD at 20:51 EST Tel , Service support , [facility] Operations: None Procedures: Cardiac catheterization Summary of Care Provided: The patient is a 64 year old F presents with chest pain. Chest pain is midsternal and radiates to her right upper extremity. Patient underwent a cardiac work-up that included a left heart catheterization. All of which was normal. Patient's chest pain is felt to be possibly GI related. Patient has an extensive abdominal surgery history with a nisin fundoplication plus a gastric bypass. Patient states that her symptoms can be attributable after eating certain foods, such as steak or chicken. Patient is already on a proton pump inhibitor. Patient advised to avoid the foods that seem to aggravate her symptoms, such as steak. Patient advised to follow-up with her train conductor, Dr. Landis. Patient also states that she gets short of breath and feels fluttering. Not seen any evidence of that. Patient advised to follow-up with her stamping mill tender and see if she needs further modification of her medications or additional procedures, such as an ablation. [] Patient Problems: Active and Suspected Problems Chest pain (Acute) - Physical Exam Vitals/I&O's: Vital Signs Temp Pulse Resp BP Pulse Ox 36.5 C L 72 16 130/75 H 95 11/22/19 12:30 11/22/19 13:45 11/22/19 13:45 11/22/19 13:45 11/22/19 13:45 Oxygen Flow Rate (L/min) 2 Oxygen Delivery Method Room Air Weight: 82.9 kg Body Mass Index (BMI) 31.4 Intake and Output for Last 24 Hours 11/20/19 11/21/19 11/22/19 23:59 23:59 23:59 Intake Total 765 / 765 300 / 300 Balance 765 / 765 300 / 300 General: Alert, No apparent distress HEENT: Atraumatic, Normocephalic Neck: No Nodes, Trachea Midline Lungs: Clear to auscultation, Normal air movement, No rhonchi, No wheeze, No rales Cardiovascular: Regular rate, Regular Rhythm, Normal S1, Normal S2, No murmurs Abdomen: Bowel Sounds Present, Soft, Non Tender, Non-Distended, No Hepato-splenomegaly Extremities: No edema, No Calf Tenderness Skin: No rashes, No breakdown Psych/Mental Status: Normal Affect, Appropriate Laboratory Results 11/21/19 17:30: WBC 5.7, RBC 4.81, Hgb 12.9, Hct 40.9, MCV 85.0, MCH 26.8 L, MCHC 31.5 L, RDW Std Deviation 43.0, RDW Coeff of Sy 14.0, Plt Count 218, MPV 10.5, Immature Gran % (Auto) 0.200, Neut % (Auto) 36.4 L, Lymph % (Auto) 35.9, Edmunds % (Auto) 16.7 H, Eos % (Auto) 9.2 H, Baso % (Auto) 1.6 H, Absolute Neuts (auto) 2.1, Absolute Lymphs (auto) 2.06, Nucleated RBC % 0 11/21/19 17:30: D-Dimer Quant (PE/DVT) 0.93 H* 11/21/19 17:30: Sodium 137, Potassium 3.5, Chloride 105, Carbon Dioxide 27.0, Anion Gap 5, BUN 13, Creatinine 0.92, Estim Creat Clear Calc 54.05, Est GFR (MDRD) Af Amer 79, Est GFR (MDRD) Non-Af 65, BUN/Creatinine Ratio 14.1, Glucose 252 H, Calcium 8.4 L, Troponin I < 0.015 11/21/19 17:30: Triglycerides 226 H, Cholesterol 167, LDL Cholesterol 57, VLDL Cholesterol 45 H, HDL Cholesterol 65 11/21/19 17:30: B-Natriuretic Peptide 40.2 11/21/19 17:30: Hemoglobin A1c 6.5 H 11/21/19 22:22: Troponin I < 0.015 11/21/19 22:55: POC Glucose 107 11/22/19 00:55: Troponin I < 0.015 11/22/19 06:32: POC Glucose 105 11/22/19 12:34: POC Glucose 80 Current Medications Acetaminophen (Tylenol) 650 mg PO Q6H PRN PRN PRN Reason: Pain Score 1-10/Temp > 100.7 F Last Admin: 11/22/19 06:44 Dose: 650 mg Documented by: Aspirin (Ecotrin) 81 mg PO DAILY@0800 [facility] Last Admin: 11/22/19 08:59 Dose: 81 mg Documented by: Atorvastatin Calcium (Lipitor) 80 mg PO QHS [facility] Last Admin: 11/21/19 23:14 Dose: 80 mg Documented by: Calcitriol (Rocaltrol) 0.25 mcg PO DAILY [facility] Last Admin: 11/22/19 08:59 Dose: 0.25 mcg Documented by: Calcium/Vitamin D (Os-Prabhakar 500mg + D) 1 tablet PO DAILY [facility] Last Admin: 11/22/19 08:59 Dose: 1 tablet Documented by: Gabapentin (Neurontin) 300 mg PO QHS [facility] Glucagon () 1 mg IM .X1 PRN PRN Reason: Hypoglycemia Heparin Sodium (Porcine) (Heparin Na) 5,000 unit SC Q8 [facility] Last Admin: 11/22/19 06:35 Dose: Not Given Documented by: Dextrose (Dextrose 10%-Water) 250 mls @ 999 mls/hr IV .Q16M PRN; Protocol PRN Reason: HYPOGLYCEMIA Sodium Chloride () 250 mls @ 15 mls/hr IV .[id number] PRN PRN Reason: Saline Flush Sodium Chloride () 250 mls @ 15 mls/hr IV .[id number] PRN PRN Reason: Additional IVPB Infusion Sodium Chloride () 1,000 mls @ 0 mls/hr IV .Q0M [facility] Sodium Chloride () 1,000 mls @ 75 mls/hr IV .[id number] [facility] Stop: 11/22/19 16:44 Last Admin: 11/22/19 13:15 Dose: 75 mls/hr Documented by: Insulin Human Lispro (Humalog Kwikpen (Bkc)) 0 unit SC ACHS [facility]; Protocol Last Admin: 11/22/19 12:36 Dose: Not Given Documented by: Ondansetron HCl (Zofran) 4 mg IV Q8H PRN PRN PRN Reason: NAUSEA/VOMITING Pantoprazole Sodium (Protonix) 40 mg PO DAILY [facility] Last Admin: 11/22/19 08:59 Dose: 40 mg Documented by: Pramipexole Dihydrochloride (Mirapex) 0.5 mg PO QHS [facility] Last Admin: 11/21/19 23:17 Dose: 0.5 mg Documented by: Sertraline HCl (Zoloft) 100 mg PO QHS [facility] Last Admin: 11/21/19 23:14 Dose: 100 mg Documented by: Sodium Chloride () 10 - 40 ml IV UD PRN PRN Reason: SALINE FLUSH Sotalol HCl (Betapace (G)) 80 mg PO BID [facility] Last Admin: 11/22/19 12:36 Dose: 80 mg Documented by: Discharge Diet: No Restrictions Home Medications: Medications to take at Discharge Sertraline HCl 100 mg PO QHS 01/16/17 Calcium Phosphate Trib/Vit D3 [Citracal + D3 Gummies] 2 each PO DAILY 02/24/17 Ergocalciferol [Vitamin D] 50,000 unit PO DAILY 02/24/17 Calcitriol [Rocaltrol] 0.25 mcg PO DAILY 04/29/17 Gabapentin [Neurontin] 300 mg PO QHS 11/21/19 Pantoprazole Sodium [Protonix] 40 mg PO DAILY 11/21/19 Ropinirole HCl [Requip] 1 mg PO QHS 11/21/19 Sotalol HCl [Sotalol AF] 80 mg PO BID 11/21/19 Primary Care Physician: Radha Howard PA [Primary Care Provider] - Within 2 Weeks Please Follow Up With: Sabiha When: 1-2 months Please Follow Up With: [facility] cardiology When: 1-2 months Disposition: Home Minutes spent on discharge:: 32 Patient Condition:: Good Medical Necessity - Tobacco Use Smoking Status: Former smoker Meaningful Use Info Meaningful Use Diagnoses (Choose all that apply): None applicable Code Visit OBSV E&M: 67027 Observation care discharge
--- NOTE | 2019-11-22 14:25 | PHA.DC.MR ---
Pharmacy Service has performed discharge medication reconciliation for this patient. The patient's discharge medication list was reviewed for discrepancies and discrepancies were resolved. Home Medications Sertraline HCl 100 mg PO QHS 01/16/17 Calcium Phosphate Trib/Vit D3 [Citracal + D3 Gummies] 2 each PO DAILY 02/24/17 Ergocalciferol [Vitamin D] 50,000 unit PO DAILY 02/24/17 Calcitriol [Rocaltrol] 0.25 mcg PO DAILY 04/29/17 Gabapentin [Neurontin] 300 mg PO QHS 11/21/19 Pantoprazole Sodium [Protonix] 40 mg PO DAILY 11/21/19 Ropinirole HCl [Requip] 1 mg PO QHS 11/21/19 Sotalol HCl [Sotalol AF] 80 mg PO BID 11/21/19
== END 2019-11-22 13:58 | disposition home or self-care (01) ==
LOC: ED 17:46 → PCU 22:39
PROVIDERS: Admitting Provider Hospitalist; Emergency Provider Emergency Medicine; PCP Physician Assistant; Referring Provider Hospitalist
DX: R07.89 Other chest pain (principal); I48.0 Paroxysmal atrial fibrillation; M79.7 Fibromyalgia; F32.9 Major depressive disorder, single episode, unspecified; F43.10 Post-traumatic stress disorder, unspecified; R06.02 Shortness of breath; R94.31 Abnormal electrocardiogram [ECG] [EKG]; Z23 Encounter for immunization; E66.9 Obesity, unspecified; Z68.32 Body mass index [BMI] 32.0-32.9, adult; I48.20 Chronic atrial fibrillation, unspecified; R73.03 Prediabetes; Z79.899 Other long term (current) drug therapy; Z71.3 Dietary counseling and surveillance; Z98.84 Bariatric surgery status; Z87.891 Personal history of nicotine dependence; Z95.0 Presence of cardiac pacemaker
CPT/HCPCS: 36415; 71045; 71275; 80048; 80061; 82962; 83036; 83880; 84484; 85025; 85379; 93005; 93458; 96360; 96361; 96372; 97802; 99152; 99153; 99218; 99285; G0008; J7030; Q9967; 90686; A4216; C1769; C1894; G0378

== ENCOUNTER → 2020-08-20 13:55 | Outpatient (CLI) | payer MEDICARE, SELFPAY ==
[2019-11-21 21:55] VITALS: BMI 31.4
--- NOTE | 2020-08-20 14:06 | MRI_ITS ---
STUDY: MRI LUMBAR SPINE WITHOUT CONTRAST REASON FOR EXAM: Female, 64 years old. spondylosis, radiculopathy,lbp-spasms, hx compression fracture d/t fall several years ago TECHNIQUE: Standardized fat and water weighted pulse sequences were obtained in the sagittal and axial planes. COMPARISON: None FINDINGS: T12-L1: Normal endplates. Normal disc height, hydration and morphology. Normal bilateral facet joints. Normal central canal and bilateral lateral recesses. Normal bilateral intervertebral neural foramina. Normal lumbar lordosis. There is no substantial scoliosis. Normal conus medullaris that terminates at the L1. L1-2: Normal endplates. Normal disc height, hydration and morphology. Normal bilateral facet joints. Normal central canal and bilateral lateral recesses. Normal bilateral intervertebral neural foramina. L2-3: Mild bilobed disc protrusion produces mild spinal stenosis and mild bilateral neural foraminal stenosis. Associated Modic type I endplate changes. L3-4: Normal endplates. Normal disc height, hydration and morphology. Normal bilateral facet joints. Normal central canal and bilateral lateral recesses. Normal bilateral intervertebral neural foramina. L4-5: Mild bilateral facet hypertrophy and ligament flavum hypertrophy. Mild broad disc protrusion produces mild spinal stenosis and mild bilateral neural foraminal stenosis. L5-S1: Normal endplates. Normal disc height, hydration and morphology. Normal bilateral facet joints. Normal central canal and bilateral lateral recesses. Normal bilateral intervertebral neural foramina. Normal visualized sacral ala. Normal visualized paraspinous soft tissue structures. MRI/Spine Lumbar (Routine) IMPRESSION: Mild degenerative disc disease as described above. Electronically Signed: Unruly Ayala MD at 17:26 EST Tel , Service support ,
[2020-08-20 14:56] VITALS: BP 146/103; PULSE 89; RESP 16; O2SAT 94
[2020-08-20 15:11] VITALS: BP 133/85; PULSE 89; RESP 16; O2SAT 91
[2020-08-20 15:19] VITALS: BP 134/85; PULSE 89; RESP 16; O2SAT 97
== END ==
PROVIDERS: PCP Physician Assistant; Referring Provider Orthopaedic Surgery; Visit Provider Orthopaedic Surgery
DX: M47.26 Other spondylosis with radiculopathy, lumbar region (principal)
CPT/HCPCS: 72148

== ENCOUNTER → 2020-09-25 15:05 | Outpatient (CLI) | payer MEDICARE, SELFPAY ==
[2019-11-21 21:55] VITALS: BMI 31.4
--- NOTE | 2020-09-25 15:09 | BI_ITS ---
MAMMOGRAPHY - BILATERAL SCREENING REASON FOR EXAM: Female, 64 years old. Routine annual screening examination. PERTINENT HISTORY: Aunt with breast cancer. TECHNIQUE: Digital bilateral breast joshua (3D mammographic acquisition) in the CC and MLO projections. 2-D mediolateral oblique (MLO) and craniocaudad (CC) views of both breasts were obtained. CAD: Full Field Digital Mammography with Computer Added Detection was performed. COMPARISON: Comparison is made with prior examination dated 11/30/2018. FINDINGS: Breast Composition: The breasts are almost entirely fatty. There are no dominant masses or suspicious calcifications. Interval decrease in size of the well-defined nodule in the inferior slightly lateral aspect of the left breast. It presently measures 3 mm. Once again, a pacemaker battery pack is seen in the left axillary region. No other significant abnormalities are identified. BI/SCREEN MAMM (CAD) W/JOSHUA BILAT IMPRESSION: Interval decrease in size of the left breast nodule as described. Yearly follow-up mammogram recommended. (A) ASSESSMENT CATEGORY: BIRADS Category 2: Benign. A letter regarding these results will be sent to the patient by the facility within 30 days. Approximately 10% of breast cancers are not detected by mammography. A normal mammogram should not delay biopsy of a clinically suspicious abnormality. [id number] Electronically Signed: Phillip Love, at 15:51 EST , Service support ,
== END ==
PROVIDERS: PCP Physician Assistant; Referring Provider Physician Assistant; Visit Provider Physician Assistant
DX: Z12.31 Encounter for screening mammogram for malignant neoplasm of breast (principal); Z80.3 Family history of malignant neoplasm of breast
CPT/HCPCS: 77063; 77067

== ENCOUNTER → 2021-09-23 16:09 | Outpatient (CLI) | payer MEDICARE, SELFPAY ==
--- NOTE | 2021-09-23 | FLU_PTH ---
PATIENT: JAVIER PIÑA [id number] AGE/SX: 69/F ROOM: RE09/23/[address]: Dr. Padilla Saini MD : 1955 BED: DIS: SPEC #: [id number] RECD: 09/23/21 16:06 STATUS: CHAVEZ JEANNETTE #: [id number] CHONG: 09/23/21 00:[address]: Padilla Saini DEPT: CYTOLOGY RECD BY: Haritha Kaur ENTERED: 09/24/21 08:32 SP TYPE: Fluid OTHR DR: ABRAHAM Perry Tissues: A - Thyroid gland, NOS B - Thyroid gland, NOS C - Thyroid gland, NOS D - Thyroid gland, NOS Procedures: Special Stain Group II Surgery Specimen Level IV Cytospin Fluid HEADER OPERATION: Right and left thyroid fine needle aspiration PRE-OP DIAGNOSIS: Multiple thyroid nodules, bilateral TISSUE SUBMITTED: A ? Right thyroid nodule fluid, B ? Right thyroid nodule slides x4, C ? Left thyroid nodule fluid, D ? Left thyroid nodule slides x4 DIAGNOSIS CYTOLOGY A. Fine needle aspiration, right thyroid nodule fluid (cytospin and cell block): Adequate for evaluation. Negative, consistent with benign follicular nodule. See comment. B. Fine needle aspiration, right thyroid nodule (smears): Negative, consistent with benign follicular nodule. Negative for malignant cells. See comment. C. Fine needle aspiration, left thyroid nodule fluid (cytospin and cell block): Negative for malignant cells. See comment. D. Fine needle aspiration, left thyroid nodule (smears): Negative for malignant cells. See comment. AM:clive 09/25/2021 COMMENT A. The specimen contains scattered benign follicular cells and chronic inflammation cells. B. The specimen contains only rare benign appearing follicular cells. The paucity of follicular cells precludes further evaluation. Clinical correlation is necessary. C. The specimen contains rare macrophages and scattered inflammatory cells. Follicular cells are not present. Clinical correlation is necessary. D. The absence of follicular cells precludes further evaluation. Clinical correlation is necessary. CYTOLOGY STUDY Slides are reviewed. CYTOLOGY GROSS A - Received is 15 ml of red cloudy fluid with particles labeled with the patient's name and and designated per the requisition as right thyroid. Submitted for cytology preparation including cell block. B - Received are four smears labeled with the patient's name and designated per the requisition as right thyroid. Submitted for staining. C - Received is 15 ml of red cloudy fluid with particles labeled with the patient's name and and designated per the requisition as left thyroid. Submitted for cytology preparation including cell block. D - Received are four smears labeled with the patient's name and designated per the requisition as left thyroid. Submitted for staining. / clive 09/24/2021 TC:5 CPT: 41645 x2, 79991 x2, 98613 x2
== END ==
PROVIDERS: PCP Physician Assistant; Visit Provider Surgery
DX: E04.2 Nontoxic multinodular goiter (principal)
CPT/HCPCS: 88108; 88305; 88313

== ENCOUNTER → 2021-09-26 08:09 | Outpatient (CLI) | payer MEDICARE, SELFPAY ==
--- NOTE | 2021-09-26 08:11 | BI_ITS ---
MAMMOGRAPHY - BILATERAL SCREENING REASON FOR EXAM: Female, 65 years old. Routine annual screening examination. PERTINENT HISTORY: Aunt with breast cancer. TECHNIQUE: Digital bilateral breast joshua (3D mammographic acquisition) in the CC and MLO projections. 2-D mediolateral oblique (MLO) and craniocaudad (CC) views of both breasts were obtained. CAD: Full Field Digital Mammography with Computer Added Detection was performed. COMPARISON: Comparison is made with prior study dated 09/25/2020 and 11/30/2018. FINDINGS: Breast Composition: The breasts are almost entirely fatty. There are no dominant masses or suspicious calcifications. The battery pack of a pacemaker is once again seen in the axillary region of the left breast. Stable 3 mm well-defined nodule in the inferior slightly lateral aspect of the left breast. No other significant abnormalities are identified. There has been no significant change since the prior study. BI/SCRN MAMM (CAD)W/JOSHUA BILAT IMPRESSION: Stable bilateral screening mammogram. Yearly follow-up mammogram recommended. (A) ASSESSMENT CATEGORY: BIRADS Category 2: Benign. A letter regarding these results will be sent to the patient by the facility within 30 days. Approximately 10% of breast cancers are not detected by mammography. A normal mammogram should not delay biopsy of a clinically suspicious abnormality. [id number] Electronically Signed: Phillip Love MD at 9:17 EST , Service support ,
== END ==
PROVIDERS: PCP Physician Assistant; Referring Provider Physician Assistant; Visit Provider Physician Assistant
DX: Z12.31 Encounter for screening mammogram for malignant neoplasm of breast (principal)
CPT/HCPCS: 77063; 77067

== ENCOUNTER → 2022-09-10 | Outpatient (CLI) | payer MEDICARE, SELFPAY ==
--- NOTE | 2022-09-10 12:14 | US_ITS ---
STUDY: THYROID ULTRASOUND REASON FOR EXAM: Female, 66 years old. Thyroid nodule TECHNIQUE: Ultrasound evaluation of the thyroid was performed with real-time and static de [place] ro[place]-scale imaging. COMPARISON: None. FINDINGS: RIGHT LOBE: The right lobe of the thyroid gland measures 4.8 cm x 1.3 cm x 1.6 cm. There is a homogeneous echotexture. There is a 1.3 cm x 1.1 cm x 1.1 cm solid and cystic nodule in the upper pole. A similar appearing nodular density measuring 6 mm x 5 mm x 3 mm is present as well. LEFT LOBE: The left lobe of the thyroid gland measures 4.6 cm x 1.6 cm x 1.3 cm. There is a homogeneous echotexture. 3 hypoechoic solid nodules are seen. The larger measures 1.4 cm x 1.2 cm x 0.8 cm. ISTHMUS: The isthmus measures 5 mm. The regional lymph nodes are normal. US/Thyroid IMPRESSION: Bilateral thyroid nodules. The largest nodule in the right lobe measures 1.3 cm x 1.1 cm x 1.1 cm. The largest nodule in the left lobe measures 1.4 cm x 1.2 cm x 0.8 cm. Electronically Signed: Phillip Love MD at 15:05 EST ,
[2022-09-10 13:05] LABS: Free T3 2.9 pg/mL (2.18-3.98); T4 Total, Thyroxin 10.8 ug/dL (4.8-13.9); Thyroid Stim Hormone (TSH) 1.42 uIU/mL (0.358-3.74)
== END | disposition home or self-care (01) ==
PROVIDERS: PCP Physician Assistant; Referring Provider Surgery; Visit Provider Surgery
DX: E04.1 Nontoxic single thyroid nodule (principal)
CPT/HCPCS: 36415; 76536; 84436; 84443; 84481

== ENCOUNTER → 2022-09-16 | Outpatient (CLI) | payer MEDICARE, SELFPAY ==
[2022-09-16 15:43] LABS: Vitamin D,25 Hydroxy 67.7 ng/mL
[2022-09-16 15:50] LABS: Calcium,Total 9.2 mg/dL (8.5-10.1); Thyroid Stim Hormone (TSH) 1.07 uIU/mL (0.358-3.74)
== END | disposition home or self-care (01) ==
LOC: PAVLAB 14:10
PROVIDERS: PCP Physician Assistant; Referring Provider Surgery; Visit Provider Surgery
DX: E21.3 Hyperparathyroidism, unspecified (principal); E04.1 Nontoxic single thyroid nodule
CPT/HCPCS: 36415; 82306; 82310; 84443

== ENCOUNTER → 2022-09-17 | Outpatient (CLI) | payer MEDICARE, SELFPAY | END | disposition home or self-care (01) | LOC: PAVLAB 09:40 | PROVIDERS: PCP Physician Assistant; Referring Provider Surgery; Visit Provider Surgery | DX: E04.1 Nontoxic single thyroid nodule (principal) | CPT/HCPCS: 36415; 83970 ==

== ENCOUNTER → 2022-09-30 | Outpatient (CLI) | payer MEDICARE, SELFPAY ==
--- NOTE | 2022-09-30 15:17 | BI_ITS ---
MAMMOGRAPHY - BILATERAL SCREENING REASON FOR EXAM: Female, 66 years old. Routine annual screening examination. PERTINENT HISTORY: Aunt with breast cancer. Breast reduction in 2010. TECHNIQUE: Digital bilateral breast joshua (3D mammographic acquisition) in the CC and MLO projections. 2-D mediolateral oblique (MLO) and craniocaudad (CC) views of both breasts were obtained. CAD: Full Field Digital Mammography with Computer Added Detection was performed. COMPARISON: Mammogram from 09/26/2021, 09/25/2020 FINDINGS: Breast Composition: There are scattered areas of fibroglandular density. A stable left pacemaker again obscures assessment of the left axilla. There are no dominant masses or suspicious calcifications. No other significant abnormalities are identified. There has been no significant change since the prior study. BI/SCRN MAMM (CAD)W/JOSHUA BILAT IMPRESSION: Stable bilateral screening mammogram. Yearly follow-up mammogram recommended. (A) ASSESSMENT CATEGORY: BIRADS Category 2: Benign. A letter regarding these results will be sent to the patient by the facility within 30 days. Approximately 10% of breast cancers are not detected by mammography. A normal mammogram should not delay biopsy of a clinically suspicious abnormality. Electronically Signed: Darius Omer, at 15:02 EST ,
== END | disposition home or self-care (01) ==
LOC: OPBI 15:15
PROVIDERS: PCP Physician Assistant; Visit Provider Physician Assistant
DX: Z12.31 Encounter for screening mammogram for malignant neoplasm of breast (principal); Z80.3 Family history of malignant neoplasm of breast
CPT/HCPCS: 77063; 77067

== ENCOUNTER → 2023-01-21 | Outpatient (CLI) | payer MEDICARE, SELFPAY ==
[2023-01-21 10:50] VITALS: BP 113/64; PULSE 76; RESP 16; TEMP 36.2; O2SAT 98; BMI 25.0
[2023-01-21] MEDS: 0.9% NaCl Peripheral Flush Adult/Peds IV (10:58)
[2023-01-21] MEDS: Zoledronic Acid 5 MG 100 ML 300 MG IV (10:59)
[2023-01-21 11:28] VITALS: BP 104/55; PULSE 72
== END | disposition home or self-care (01) ==
PROVIDERS: PCP Physician Assistant; Referring Provider Nurse Practitioner Family; Visit Provider Nurse Practitioner Family
DX: M81.0 Age-related osteoporosis without current pathological fracture (principal)
CPT/HCPCS: 96365; A4216; J3489

== ENCOUNTER → 2023-09-10 | Outpatient (CLI) | payer MEDICARE, SELFPAY ==
--- NOTE | 2023-09-10 11:34 | US_ITS ---
STUDY: THYROID ULTRASOUND REASON FOR EXAM: Female, 67 years old. Thyroid nodules TECHNIQUE: Ultrasound evaluation of the thyroid was performed with real-time and static de [place] rosa-scale imaging. COMPARISON: None. FINDINGS: RIGHT LOBE: The right lobe of the thyroid gland measures 4.9 x 1.2 x 1.6 cm. There are 2 nodules, in the midpole, measuring 1.8 x 1.0 x 1.2 cm and 0.5 x 0.5 x 0.4 cm. The larger mass has a cystic appearing border and a solid mixed echogenicity center with some vascularity. It appears wider than tall. On prior study the larger mass measured 1.5 x 0.6 x 0.9 cm. LEFT LOBE: The left lobe of the thyroid gland measures 4.6 x 1.5 x 1.2 cm. Within the left side of the thyroid there is a visualized nodule measuring 1.6 x 1.1 x 0.7 cm and the mid aspect of the thyroid. It contains coarse calcifications and is wider than tall. There is a 6 x 6 x 4 mm cystic structure there is a mixed echogenicity structure measuring 6.4 x 0.4 x 6.2. ISTHMUS: The isthmus measures 4 mm . The regional lymph nodes are normal. US/Thyroid IMPRESSION: Dominant enlarging mass in the right thyroid. Given the size and calcification as well as into a category of at TR 4- TR 5. This is wider than tall but has mixed echogenicity and coarse calcification portions of this mass may be exophytic and possibly palpable. Given the appearance in the interval increase in size for the evaluation is recommended with fine needle aspiration. Hypoechoic masses within the left thyroid the largest of which measures 1.6 x 1.1 x 0.7 cm. TR 4-5 This also allowing for differences in measuring technique appears to enlarge since prior study. This also appears to be wider than tall with well-circumscribed borders but internal calcification. Given the size and interval change as well as the appearance further evaluation with fine-needle aspiration is recommended. The remainder of the smaller nodules can be followed based on the pathology of the aforementioned fairly dominant appearing nodules within the thyroid. Electronically Signed: Paola Morales MD at 18:18 EST ,
== END | disposition home or self-care (01) ==
LOC: US 11:33
PROVIDERS: PCP Physician Assistant; Referring Provider Surgery; Visit Provider Surgery
DX: E04.1 Nontoxic single thyroid nodule (principal)
CPT/HCPCS: 76536

== ENCOUNTER → 2023-10-01 | Outpatient (CLI) | payer MEDICARE, SELFPAY ==
--- NOTE | 2023-10-01 10:41 | BI_ITS ---
MAMMOGRAPHY - BILATERAL SCREENING 3-D TOMOSYNTHESIS REASON FOR EXAM: Female, 67 years old. Routine annual screening mammogram. PERTINENT HISTORY: History of breast reduction in 2010 and aunt with breast cancer. TECHNIQUE: 2-D mammograms and 3-D Tomosynthesis of the breast (s) were performed. CAD was performed. COMPARISON: September 30, 2022, September 26, 2021 FINDINGS: The breast composition is almost entirely fat. Normal lymph nodes and scattered benign calcifications, unchanged. No dominant masses, suspicious microcalcifications, asymmetries, skin thickening or nipple retraction. BI/SCRN MAMM (CAD)W/JOSHUA BILAT IMPRESSION: No interval change and no mammographic signs of malignancy. Routine yearly mammogram recommended. ASSESSMENT CATEGORY: BIRADS Category 2: Benign. A letter regarding these results will be sent to the patient by the facility within 30 days. FOLLOW UP RECOMMENDATION: Yearly follow up mammogram recommended. (A) Approximately 10% of breast cancers are not detected by mammography. A normal mammogram should not delay biopsy of a clinically suspicious abnormality. Electronically Signed: Tyson Louie MD at 13:33 EST ,
== END | disposition home or self-care (01) ==
LOC: OPBI 10:39
PROVIDERS: PCP Physician Assistant; Referring Provider Physician Assistant; Visit Provider Physician Assistant
DX: Z12.31 Encounter for screening mammogram for malignant neoplasm of breast (principal); Z80.3 Family history of malignant neoplasm of breast
CPT/HCPCS: 77063; 77067

== ENCOUNTER 2023-10-20 14:53 | Outpatient (CLI) | payer MEDICARE, SELFPAY ==
--- NOTE | 2023-10-20 13:00 | FLU_PTH ---
PATHOLOGY RESULTS PATIENT: JAVIER PIÑA [id number] AGE/SX: 67/F ROOM: RE10/20/[address]: Dr. Padilla Saini MD : 1955 BED: DIS: 10/20/2023 SPEC #: [id number] RECD: 10/21/23 08:28 STATUS: CHAVEZ JEANNETTE #: [id number] CHONG: 10/20/23 13:[address]: Padilla Saini DEPT: CYTOLOGY RECD BY: Sharon Pinedo ENTERED: 10/21/23 08:29 SP TYPE: Fluid OTHR DR: ABRAHAM Perry Tissues: Thyroid gland, NOS Thyroid gland, NOS Procedures: Special Stain Group II Surgery Specimen Level IV Cytospin Fluid HEADER OPERATION: Fine needle aspiration of left isthmic nodule PRE-OP DIAGNOSIS: Left isthmic nodule TISSUE SUBMITTED: A - Left isthmic nodule fluid, B - Left isthmic nodule x4 slides DIAGNOSIS CYTOLOGY A. Left ischemic nodule fluid, fine needle aspiration (cytospin and cell block): Consistent with benign follicular/colloid nodule ([place] Category II). Adequate for evaluation. See comment. B. Left ischemic nodule, fine needle aspiration (smears): Consistent with benign follicular/colloid nodule ([place] Category II). Adequate for evaluation. See comment. SJ:rg 10/22/2023 COMMENT A & B. Correlation with clinical, radiologic findings and appropriate follow up are necessary. The [place] System for thyroid diagnostic categorization was used in the evaluation of this case. Please make reference to previous cytology specimen ([id number]), FNA, right thyroid nodule fluid and right thyroid nodule smears with diagnosis of consistent with benign follicular nodule and left thyroid nodule fluid and left thyroid nodule smears with diagnosis of negative for malignant cells. CYTOLOGY STUDY Slides are reviewed. CYTOLOGY GROSS A - Received is 30 ml of red cloudy fluid labeled with the patient's name and and designated per the requisition as left isthmic nodule. Submitted for cytology preparation including cell block. B - Received are four smears labeled with the patient's name and designated per the requisition as left isthmic nodule. Submitted for staining. / clive 10/21/2023 TC:5 CPT: 97072 x2, 34816
--- OUTSIDE RECORDS SUMMARY | 2023-10-20 16:57 | XMS RPT_ITS | CCD ---
Author Name Unknown Address [address] [place] [address] Organization [facility] Care Team Providers Care Cytology Supervisor Name Role Phone RADHA DIAL Primary Care Physician RADHA DIAL Primary Care Unavailable TRINITY IRWIN MD Attending Unavailable DC STOUT, TRINITY Consulting Unavailable TRINITY IRWIN MD Admitting Unavailable Pcp CORRECTIONS CORPORAL, No Primary Care Provider Unavailabl e Pcp CORRECTIONS CORPORAL, No Primary Care Provider Unavailabl e Lynne Rust DO, Arnold D Primary Care Provide r Patrick MENJIVAR DO, Douglas Alan Primary Care Pro vider Olivia Cook Primary Care Provider [phone] Radha Howard Primary Care Provider RADHA HOWARD Consulting Unavailable HOWARD, RADHA J Attending Unavailable HOWARD, RADHA J Admitting Unavailable HOWARD, RADHA J Primary Care Unavailable PROVIDER, UNKNOWN Consulting Unavailable HOWARD, RADHA J Attending Unavailable HOWARD, RADHA J Admitting Unavailable HOWARD, RADHA J Primary Care Unavailable HOWARD, RADHA J Consulting Unavailable SABRINA JOE MD Referring Unavailable PROVIDER, UNKNOWN Consulting Unavailable HOWARD, RADHA J Consulting Unavailable HOWARD, RADHA J Attending Unavailable HOWARD, RADHA J Admitting Unavailable HOWARD, RADHA J Primary Care Unavailable PROVIDER, UNKNOWN Consulting Unavailable ELENO HINTON MD Admitting Unavailable ELENO HINTON MD Primary Care Unavailable ELENO HINTON MD Attending Unavailable HOWARD, RADHA Luana Consulting Unavailable HOWARD, RADHA J Referring Unavailable PROVIDER, UNKNOWN Consulting Unavailable Radha Howard PA-C Unavailable Lee MEDINA, Radha Craft Unavailable Physical Therapy Provider Unavailable Shady ling [facility] [place] [facility] Unavailable Sofia STOUT, Dr. Dykes Unavailable [phone] [facility], . Unavailable Nisha STOUT, Dr. Vinay Whalen Unavailable Tata STOUT, Dr. Tolliver Unavailable [phone] [facility] Faith STOUT, Dr. Tavares Unavailable Carina LOST CHARGE CARD CLERK, Ester Unavailable Brian STOUT, Vincenzo Whalen Unavailable Les LOST CHARGE CARD CLERK, Lizeth Gómez Unavailable Unavailable Dinesh LOST CHARGE CARD CLERK, Rachel Unavailable Unavailable Dk STOUT, Henry Linder Unavailable Myesha Hopkins Unavailable Unavailable Dimitris LOST CHARGE CARD CLERK, Anel Unavailable Unavailable INSTRUMENTATION AND CONTROL TECHNICIAN-C, Tremayne Iqbal Unavailable Tyler FLANNERY, Veena Linder Unavailable Unavaila laura Fang LOST CHARGE CARD CLERK, Catarino Unavailable Unavailable Trevon LOST CHARGE CARD CLERK, Delilah Unavailable Unavailable Belén SINGLE STAYER OPERATOR, Tahmina Unavailable Unavailable Alysha LOST CHARGE CARD CLERK, Aria M Unavailable Unavailab ruddy Arrieta LOST CHARGE CARD CLERK, Ladi Frey Unavailable Unavailab ruddy Hall MA, Anel Unavailable Unavailable Jorge Alberto STOUT, Warren Linder Unavailable Melanie LOST CHARGE CARD CLERK, Prema Unavailable Unavailkentrell Morin LOST CHARGE CARD CLERK, Isis Unavailable Unavailable Unavailable Unavailable Allergies Allergy Classification Reported Allergen(s) Allergy Type Date of Onset Reaction(s) Facility (2 sources) Tape 1 Allergy to substance Irritation [facility] Medications Current Medications Medication Drug Class(es) Dates Sig (Normalized) Sig (Original) ALPRAZolam 0.25 mg oral tablet (2 sources) Benzodiazepine Start: 10-08-2022 take 0.5-1 tablets by mouth every eight hours as needed ALPRAZolam 0.25 MG Oral Tablet ; 1/2 to 1 Tablet as needed every 8 hours for anxiety for 0 days Quantity: 10 {Tablet} Refills: 0 Ordered: 08-Oct-2022 EMILIA Fang Catarino Start: 08-Oct-2022 Comments: Medication taken as needed. OARRS: 10/08/22 Completed/Discontinued Medications Medication Drug Class(es) Dates Sig (Normalized) Sig (Original) acetaminophen 325 mg / HYDROcodone bitartrate 5 mg oral tablet (4 sources) Opioid Agonist Start: 11-19-2016 End: 01-27-2017 take 1 tablet by mouth every six hours as needed Hydrocodone-Aceta minophen 5-325 MG Oral Tablet ; 1 (one) Tablet every 6 hours as needed for 0 days Quantity: 30 {Tablet} Refills: 0 Ordered: 27-Jan-2017 EMILIA Navarro Start: 19-Nov-2016 End: 27-Jan-2017 Status: Inactive Comments: Medication taken as needed. OARRs: 11/19/16 Problems Active Problems Problem Classification Problem Date Documented Da te Episodic/Chronic Acute bronchitis (4 sources) Acute bronchitis; Translations: [Acute bronchitis, unspecified] 09-15-2018 Episodic Administrative/social admission (2 sources) Repeated prescription; Translations: [Encounter for issue of repeat prescription] 01-10-2015 Episodic Anxiety disorders (10 sources) Mixed anxiety and depressive disorder; Translations: [Anxiety disorder, unspecified] Onset: 12-09-2019 12-09-2019 Chronic Cardiac dysrhythmias (20 sources) Paroxysmal atrial fibrillation; Translations: [Sick sinus syndrome] Onset: 12-09-2019 12-14-2019 Chronic Past or Other Problems Problem Classification Problem Date Documented Da te Episodic/Chronic Diabetes mellitus without complication (2 sources) Prediabetes; Translations: [Prediabetes] Onset: 0 12-09-2019 Episodic Epilepsy; convulsions (2 sources) Seizure; Translations: [Unspecified convulsions] Onset: 0 12-09-2019 Episodic Gastrointestinal hemorrhage (2 sources) Acute gastrointestinal hemorrhage; Translations: [Gastrointestinal hemorrhage, unspecified] Onset: 7 01-25-2017 Episodic Headache; including migraine (5 sources) Headache; including migraine; Translations: [Headache, unspecified] Onset: 3 Nonspecific chest pain (4 sources) Chest pain; Translations: [Other chest pain] Onset: 11-28-2019 Episodic Results Test Name Value Interpretation Reference Range Facil ity Vital Signs Date Time Vital Sign Value Performing Clinician Sunday rodriguez 09-03-2023 13:28050 Body height 161.29 cm rAia Encarnacion LPH[facility], [employer].; [employer]. 09-03-2023 13:28-0500 Body mass index (BMI) [Ratio] 24.06 kg/m2 [facility] [employer] [facility] [employer] [employer] [facility].; [employer]. 09-03-2023 13:28050 Body surface area Derived from formula 1.66 [address] [facility].; [employer]. 09-03-2023 13:050 Body weight 62.6 kg Aria Encarnacion LPN [employer] [facility].; [employer]. 09-03-2023 13:28050 Diastolic blood pressure 72 mm[Hg] Aria Encarnacion LPChrist[facility].; [employer]. Encounters Encounter Date Encounter Type Care Provider Facility Start: 09-11-2023 End: 09-11-2023 ambulatory MURRELLS INLET Luana [facility] Start: 09-11-2023 End: 09-11-2023 Orders Radha Howard PA-C Work Phone: [employer] [facility] [employer] [facility] Start: 09-03-2023 End: 09-03-2023 Patient encounter procedure Radha Howard PA-C Work Phone: [employer] [facility]. Start: 08-25-2023 End: 08-31-2023 Orders Radha Howard PA-C Work Phone: [employer] [facility] [employer] [facility]. Start: 08-10-2023 End: 08-10-2023 Orders Radha Howard PA-C Work Phone: [employer] [facility] [facility] Start: 06-30-2023 End: 06-30-2023 ambulatory MURRELLS INLET Luana [facility] Start: 06-29-2023 End: 06-29-2023 Orders Radha Howard PA-C Work Phone: [employer]. Start: 06-26-2023 End: 06-26-2023 Patient encounter procedure Radha Howard PA-C Work Phone: [employer]. Start: 03-16-2023 End: 03-16-2023 ambulatory RADHA HOWARD [facility] Start: 03-11-2023 End: 03-11-2023 Office outpatient visit 25 minutes Radha Howard PA-C Work Phone: [employer]. Start: 03-02-2023 End: 03-04-2023 ambulatory ELENO STOUT [facility] Start: 01-15-2023 End: 01-15-2023 Orders Radha Howard PA-C Work Phone: [employer]. Start: 01-01-2023 End: 01-01-2023 Orders Radha Howard PA-C Work Phone: [employer]. Start: 12-29-2022 End: 12-29-2022 Office outpatient visit 25 minutes Radha Howard PA-C Work Phone: [employer]. Start: 10-27-2022 End: 10-27-2022 Medication Radha Howard PA-C Work Phone: [employer]. Start: 10-13-2022 End: 10-13-2022 Orders Radha Howard PA-C Work Phone: [employer]. Start: 10-08-2022 End: 10-08-2022 Patient encounter procedure Radha Howard PA-C Work Phone: [employer]. Start: 10-01-2022 End: 10-02-2022 ambulatory RADHA HOWARD PA Facility:A Start: 10-01-2022 End: 10-02-2022 Observation TRINITY IRWIN MD [facility] Start: 09-23-2022 End: 09-23-2022 Orders Radha Howard PA-C Work Phone: [employer]. Start: 09-19-2022 End: 09-19-2022 Orders Radha Howard PA-C Work Phone: [employer]. Start: 06-23-2022 End: 06-23-2022 Patient encounter procedure Radha Howard PA-C Work Phone: [employer]. Start: 01-01-2022 End: 01-01-2022 Orders Radha Howard PA-C Work Phone: [employer]. Start: 12-18-2021 End: 12-18-2021 Patient encounter procedure Radha Howard PA-C Work Phone: [employer]. Start: 12-12-2021 End: 12-12-2021 Orders Radha Howard PA-C Work Phone: [employer]. Start: 12-03-2021 End: 12-04-2021 Orders Radha Howard PA-C Work Phone: [employer] Start: 09-26-2021 End: 09-26-2021 Telephone follow-up Radha Howard PA-C Work Phone: [employer]. Start: 09-09-2021 End: 09-09-2021 Orders Radha Howard PA-C Work Phone: [employer]. Start: 09-06-2021 End: 09-06-2021 Orders Radha Howard PA-C Work Phone: [employer]. Start: 09-06-2021 End: 09-06-2021 Orders Radha Howard PA-C Work Phone: [employer]. Start: 09-04-2021 End: 09-04-2021 Telephone follow-up Radha Howard PA-C Work Phone: [employer]. Start: 08-26-2021 End: 08-26-2021 Orders Radha Melendrezer PA-C Work Phone: [employer]. Start: 08-21-2021 End: 08-22-2021 Evaluation finding Radha Melendrezer PA-C Work Phone: [employer].; [employer]. Start: 08-21-2021 End: 08-22-2021 Patient encounter procedure Radha Melendrezer PA-C Work Phone: [employer]. Start: 07-29-2021 End: 07-29-2021 SAME DAY STAY DEVORAH MADRID MD [facility] Start: 07-05-2021 End: 07-05-2021 Office outpatient visit 15 minutes Radha Melendrezer PA-C Work Phone: [employer]. Start: 04-05-2021 End: 04-05-2021 Historical Summary Radha Melendrezer PA-C Work Phone: [employer] Start: 01-02-2021 End: 01-02-2021 Telephone follow-up Radha Melendrezer PA-C Work Phone: [employer]. Start: 09-06-2020 End: 09-06-2020 Orders Radha Howard PA-C Work Phone: [employer] Start: 08-27-2020 End: 08-27-2020 Historical Summary Radha Howard PA-C Work Phone: [employer] Start: 08-27-2020 End: 09-05-2020 Patient encounter procedure Radha Howard PA-C Work Phone: [employer] Start: 07-23-2020 End: 07-23-2020 Orders Radha Howard PA-C Work Phone: [employer] Start: 07-02-2020 End: 07-02-2020 Orders Radha Howard PA-C Work Phone: [employer]. Start: 04-12-2020 End: 04-12-2020 Medication Radha Howard PA-C Work Phone: [employer]. Start: 04-10-2020 End: 04-10-2020 Historical Summary Radha Howard PA-C Work Phone: [employer]. Start: 04-03-2020 End: 04-03-2020 Office outpatient visit 15 minutes Radha Howard PA-C Work Phone: [employer]. Start: 02-09-2020 End: 02-09-2020 Follow-up encounter Radha Howard PA-C Work Phone: [employer]. Start: 12-22-2019 End: 12-22-2019 Follow-up encounter Radha Howard PA-C Work Phone: [employer]. Start: 10-07-2019 End: 10-07-2019 Medication Radha Howard PA-C Work Phone: [employer]. Start: 07-14-2019 End: 07-15-2019 Medication Radha Howard PA-C Work Phone: [employer]. Start: 06-10-2019 End: 06-10-2019 Historical Summary Radha Howard PA-C Work Phone: [employer]. Start: 05-12-2019 End: 05-16-2019 Office outpatient visit 25 minutes Radha Howard PA-C Work Phone: [employer]. Start: 05-06-2019 End: 05-06-2019 Telephone follow-up Radha Howard PA-C Work Phone: [employer]. Start: 12-01-2018 End: 12-01-2018 Orders Radha Howard PA-C Work Phone: [employer]. Start: 11-15-2018 End: 11-15-2018 Medication Radha Howard PA-C Work Phone: [employer]. Start: 11-11-2018 End: 11-15-2018 Patient encounter procedure Radha Howard PA-C Work Phone: [employer]. Start: 11-08-2018 End: 11-08-2018 Telephone follow-up Radha Howard PA-C Work Phone: [employer]. Start: 09-15-2018 End: 09-15-2018 Patient encounter procedure Radha Howard PA-C Work Phone: [employer]. Start: 08-25-2018 End: 08-25-2018 Office outpatient visit 15 minutes Radha Howard PA-C Work Phone: [employer]. Start: 04-28-2018 End: 04-28-2018 Historical Summary Radha Howard PA-C Work Phone: [employer]. Start: 04-14-2018 End: 04-14-2018 Office outpatient visit 25 minutes Radha Howard PA-C Work Phone: [employer]. Start: 04-12-2018 End: 04-12-2018 Historical Summary Radha Howard PA-C Work Phone: [employer]. Start: 03-24-2018 End: 03-24-2018 Medication Radha Howard PA-C Work Phone: [employer]. Start: 12-08-2017 End: 12-08-2017 Orders Radha Howard PA-C Work Phone: [employer]. Start: 10-30-2017 End: 10-30-2017 Office outpatient visit 15 minutes Radha Howard PA-C Work Phone: [employer] Start: 07-30-2017 End: 08-03-2017 Office outpatient visit 25 minutes Radha Howard PA-C Work Phone: [employer]. Start: 07-30-2017 End: 08-03-2017 Preprocedural examination done Radha Melendrezer PA-C Work Phone: [employer] Start: 06-15-2017 End: 06-15-2017 Office outpatient visit 15 minutes Radha Melendrezer PA-C Work Phone: [employer]. Start: 03-26-2017 End: 03-26-2017 Medication Radha Howard PA-C Work Phone: [employer]. Start: 02-11-2017 End: 02-11-2017 Orders Radha Melendrezer PA-C Work Phone: [employer]. Start: 01-28-2017 End: 01-29-2017 Office outpatient visit 25 minutes Radha Melendrezer PA-C Work Phone: [employer]. Start: 01-27-2017 End: 01-27-2017 Historical Summary Radha Melendrezer PA-C Work Phone: [employer]. Start: 11-19-2016 End: 11-19-2016 Patient encounter procedure Radhaaliya Melendrezer PA-C Work Phone: [employer]. Start: 09-25-2016 End: 09-25-2016 Medication Radha Howard PA-C Work Phone: [employer]. Start: 07-30-2016 End: 07-30-2016 Patient encounter procedure Radha Howard PA-C Work Phone: [employer]. Start: 07-17-2016 End: 07-17-2016 Medication Radha Howard PA-C Work Phone: [employer]. Start: 05-02-2016 End: 05-02-2016 Medication Radha Howard PA-C Work Phone: [employer]. Start: 01-24-2016 End: 01-24-2016 Medication Radha Howard PA-C Work Phone: [employer]. Start: 01-17-2016 End: 01-17-2016 Patient encounter procedure Radha Howard PA-C Work Phone: [employer]. Start: 12-31-2015 End: 12-31-2015 Office outpatient visit 15 minutes Radha Howard PA-C Work Phone: [employer]. Start: 10-11-2015 End: 10-11-2015 Patient encounter procedure Radha Howard PA-C Work Phone: [employer]. Start: 10-09-2015 End: 10-09-2015 Medication Radha Howard PA-C Work Phone: [employer]. Start: 10-03-2015 End: 10-03-2015 Orders Radha Howard PA-C Work Phone: [employer]. Start: 10-03-2015 End: 10-03-2015 Patient encounter procedure Radha Howard PA-C Work Phone: [employer]. Start: 04-16-2015 End: 04-16-2015 Medication Radha Howard PA-C Work Phone: [employer]. Start: 03-30-2015 End: 03-30-2015 Orders Radha Howard PA-C Work Phone: [employer]. Start: 03-21-2015 End: 03-21-2015 Orders Radha Howard PA-C Work Phone: [employer]. Start: 03-09-2015 End: 03-09-2015 Orders Radha Howard PA-C Work Phone: [employer]. Start: 03-08-2015 End: 03-09-2015 Patient encounter procedure Radha Howard PA-C Work Phone: [employer]. Start: 03-07-2015 End: 03-07-2015 Medication Radha Howard PA-C Work Phone: [employer]. Start: 01-12-2015 End: 01-12-2015 Orders Radha Melendrezer PA-C Work Phone: [employer]. Start: 01-10-2015 End: 01-10-2015 Medication Radha Melendrezer PA-C Work Phone: [employer]. Start: 11-02-2014 End: 11-02-2014 Medication Radhaaliya Melendrezer PA-C Work Phone: [employer]. Start: 10-09-2014 End: 10-09-2014 Historical Summary Radha Melendrezer PA-C Work Phone: [employer]. Start: 09-14-2014 End: 09-14-2014 Patient encounter procedure Radhaaliya Melendrezer PA-C Work Phone: [employer]. Start: 08-09-2014 End: 08-12-2014 Patient encounter procedure Radhaaliya Melendrezer PA-C Work Phone: [employer]. Start: 06-09-2014 End: 06-11-2014 Patient encounter procedure Radha Howard PA-C Work Phone: [employer]. Start: 05-29-2014 End: 06-01-2014 Patient encounter procedure Radha Howard PA-C Work Phone: [employer]. Start: 05-02-2014 End: 05-02-2014 Orders Radha Howard PA-C Work Phone: [employer]. Start: 04-28-2014 End: 04-28-2014 Office outpatient visit 15 minutes Radha Howard PA-C Work Phone: [employer]. Start: 01-26-2009 Documentation procedure Janee Barone CORRECTIONS CORPORAL.CENTRAL SUPPLY NURSE Work Phone: [facility] Start: 01-26-2009 Historic EMR Janee feliz CORRECTIONS CORPORAL.CENTRAL SUPPLY NURSE Work Phone: [facility] Start: 08-25-2007 Documentation procedure Lam Ramirez MD Work Phone: [facility] Start: 08-25-2007 Historic EMR Lam Ramirez MD Work Phone: [facility] Evaluation finding Aria Encarnacion LPN [facility] [employer] [facility] Patient encounter procedure Aria Encarnacion LPN [facility] [employer] [facility].; [facility] [employer] [facility] Patient encounter procedure Aria Encarnacion LPN [facility] [employer] [facility].; [facility] [employer] [facility] Procedures Date Procedure Procedure Detail Performing Clinician Start: 09-03-2023 End: 09-03-2023 Adv care pln/ no alt dcsn mkr docd or refusal Radha ROSARIO-C Work Phone: Start: 09-03-2023 End: 09-03-2023 Depression screening Radha ROSARIO -C Work Phone: Start: 09-03-2023 End: 09-03-2023 Falls risk assessment documented Radha Howard PA-C Work Phone: Start: 09-03-2023 End: 09-03-2023 PPPS, subseq visit Radha Howard PA- C Work Phone: Start: 09-03-2023 End: 09-03-2023 Pt falls assess docd w/o fall/injury past year Radha Howard PA-C Work Phone: Start: 09-03-2023 End: 09-03-2023 Scr dep neg, no plan reqd Radha nur PA-C Work Phone: Start: 08-26-2023 End: 08-26-2023 Lab findings surveillance Aria chandler LPN Plan of Treatment Date Care Activity Detail Author Start: 06-05-2023 Influenza vaccination Influenza Vaccine (#1) [facility] Start: 10-05-2022 Advance Directive Discussion Advance Directive Discussion [facility] Start: 10-05-2022 Depression Assessment Depression Assessment [facility] Start: 2021 Bone Density Screening Bone Density Screening [facility] Start: 2021 Pneumococcal Vaccine: 65+ (1 - PCV) Pneumococcal Vaccine: 65+ (1 - PCV) [facility] Start: 07-02-2020 Screening mammography bi 2-view breast inc cad Mammogram Bilateral Screening (23238) Start: 02-Jul-2020 Intent [facility] [employer] Start: 04-14-2018 Screening mammography bi 2-view breast inc cad Mammogram Bilateral Screening (88743) Start: 14-Apr-2018 Intent [employer] [facility] [employer]. Start: 12-31-2015 Diabetes Screening Diabetes Screening [facility] Start: 2006 Shingrix Vaccine (1 of 2) Shingrix Vaccine (1 of 2) [facility] Start: 2001 Cologuard (FIT-DNA) Cologuard (FIT-DNA) [facility] Start: 2001 Colonoscopy Colonoscopy [facility] Start: 2001 Colorectal Cancer Screening Colorectal Cancer Screening [facility] Start: [address] COLONOGRAPHY [facility] Start: 2001 Fecal Occult Blood Fecal Occult Blood [facility] Start: 2001 Lipid 1996 panel - Serum or Plasma Lipid Screening [facility] Start: 2001 SIGMOIDOSCOPY SIGMOIDOSCOPY [facility] Start: 1996 Mammography Mammogram Screening [facility] Start: 1975 Urine microalbumin profile DTaP,Tdap,Td Vaccine (1 - Tdap) [facility] Start: 1974 Hepatitis C Screening Hepatitis C Screening [facility] Start: 05-21-1957 Covid-19 Vaccine (#1) Covid-19 Vaccine (#1) [facility] Immunizations Immunization Date Immunization Notes Care Provider Fa rajinder 08-27-2020 influenza, injectabl e, quadrivalent, contains preservative Radha Howard PA-C Work Phone: [facility] Payers Date Payer Category Payer Unknown [id number] 2007 Unknown [id number] 1955 Unknown [id number] 1955 Unknown [id number] 1955 Unknown [id number] 1955 Unknown [id number] 1955 Unknown [id number] Social History Date Type Detail Facility Start: 12-07-2019 Ex-smoker (finding) [facility] Functional Status Date Assessment Result Facility 10-02-2022 Functional Status Awake, Repositions self [facility] 10-02-2022 Functional Status Multilevel angelita e, 1st floor bedroom, 1st floor bathroom [facility] 10-02-2022 Functional Status 100 [facility] 10-02-2022 Functional Status [facility] 10-02-2022 Functional Status [facility] 10-02-2022 Functional Status Sensory Deficits None [facility] Mental Status Date Assessment Result Facility 10-02-2022 Mental Status Orientation Oriented x 4 [facility] 10-02-2022 Mental Status [facility] 10-02-2022 Mental Status [facility] Clinical Notes 07-29-2021 to 03-09-2023 Note Date & Type Note Facility 03-09-2023 Note [facility] DISCHARGE SUMMARY NAME ACCOUNT SEX AGE ADMIT DISCHARGE PT MED. RECORD# NUMBER DATE DATE TYPE WANG [id number] F [id number] 03/02/23 03/04/23 2 JAVIER [place] [id number] ROOM: [id number] DATE OF : 1955 ATTENDING PHYSICIAN: Eleno Hinton FINAL DIAGNOSES: 1. Vertigo, improved. 2. Mild hypokalemia, improved. HISTORY OF PRESENT ILLNESS: This is a 67-year-old female with a past medical history significant for depression with anxiety, sick sinus syndrome with pacemaker in place, severe acid reflux, atrial fibrillation, and restless legs syndrome. She came in with nausea and not feeling well. In the Emergency Room, she had some vertigo. She was given meclizine and Ativan. It did not improve. She was having an unsteady gait. She could not tell which direction the dizziness was coming from, but she felt like the ground was moving under her. She had an episode of nausea and vomiting and headache. DIAGNOSTIC DATA: Initial CT was negative. They were unable to do an MRI due to her pacemaker. I did order CT angiography of the head with contrast, and it showed no acute abnormalities. HOSPITAL COURSE: For the full history and physical, please see the chart. For a brief summary, see below. She was placed on meclizine. Potassium was replaced. This morning, she states she is feeling better. She is ambulating without difficulty. She does get headaches, but she does not have an intractable headache, nausea or vomiting. She is tolerating p.o. intake. Blood pressure is 118/73, heart rate 69, respirations 18, temperature 97.4, and oxygen saturation 98% on room air. Examination is negative. I did discuss on discharge the potential side effects of meclizine, and if it becomes recurrent she should follow up with an ENT. If they need to do an MRI, she will need to go to a tertiary care center due to the pacemaker. DISPOSITION: She was discharged home in stable condition with outpatient follow-up. MEDICATIONS ON DISCHARGE: (1) Acetaminophen 650 mg every 4 hours p.r.n. (2) Meclizine 25 mg twice daily for 14 days and then b.i.d. p.r.n. dizziness. Continue all other medications as at home, including: (3) Calcium/magnesium/zinc tablets one tab daily. (4) Bupropion extended release 200 mg twice daily. (5) Diltiazem extended release 120 mg daily. (6) Eliquis 5 mg twice daily. Page 1 of 2 JAVIER PIÑA Discharge Summary JAVIER PIÑA : 1955 DISCHARGE INSTRUCTIONS/PLAN: No smoking or alcoholic beverages. Regular diet. Increase activity as tolerated. Follow up with Radha Howard on March 11, 2023, at 9:10 a.m. If the vertigo becomes recurrent, I recommend following up with ENT. Dictated by zackary Arce for Dr. Hinton. Dictated By: Eleno Hinton MD 03/04/23 12:23 JOB #: [id number] Transcribed By: soraya 03/05/23 11:22 I evaluated the patient myself the accurate E&M above is done by me Amanda Hinton MD Electronically signed by: E-Sign: ELENO HINTON MD 03/08/23 22:00 Page 2 of 2 JAVIER PIÑA Discharge Summary [facility] 03-08-2023 Note [facility] HISTORY & PHYSICAL NAME ACCOUNT SEX AGE ADMIT DISCHARGE PT MED. RECORD# NUMBER DATE DATE TYPE WANG [id number] F 67 03/02/23 2 JAVIER Ames [id number] ROOM: 304MO DATE OF : 57 DICTATING PHYSICIAN: Eleno Hinton ADMITTING DIAGNOSIS: Vertigo. CHIEF COMPLAINT: Nausea and not feeling good. HISTORY OF PRESENT ILLNESS: This is a 67-year-old lady who had chronic back pain. The patient was in his usual state of health. On the day prior to admission, she started to get ill. The night before she did have a green party somewhere that she attended. She does not recall any specific food or drink or any event happening of significance. The patient in the Emergency Room was evaluated. CT was unremarkable. No focal deficits. The patient then was given meclizine and Ativan. There was not much response, and the patient was admitted for management. When I interviewed the patient myself, she had symptoms of an unsteady gait where she had to hold onto an item when she gets up and around. She cannot tell directional dizziness to the right or the left, but when she stands up she feels like the ground is moving from under her. This is the first time she has ever had such a feeling. Later on, she had nausea and vomited twice with this, and that is when she decided to present to the Emergency Room. She had a headache she described as a pressure, more prominent on the right side. She does have allergies, and she feels congested. She denied any chest pain. No change in her vision. PAST MEDICAL HISTORY: (1) Pre-diabetes reported by the patient. She is not sure if she had that prior to her weight loss surgery. (2) Anxiety/depression. (3) Upper GI bleed. (4) Sick sinus syndrome many years ago. The patient has a pacemaker in place. (5) Severe acid reflux disease. (6) History of atrial fibrillation. (7) Obesity in the past. She lost weight, and she did have successful weight loss. (8) Restless legs syndrome. PAST SURGICAL HISTORY: (1) The patient had a Jacque procedure many years ago for acid reflux. (2) The patient also had cardiac catheterization in 2010 with normal coronaries. (3) Sick sinus syndrome with pacemaker placement. MEDICATIONS: Please refer to the medication reconciliation sheet. ALLERGIES: The patient has allergies to adhesives. FAMILY HISTORY: There is a family history of stroke. Father had Alzheimer's. Page 1 of 3 JAVIER PIÑA History & Physical JAVIER PIÑA :1955 SOCIAL HISTORY: The patient is . He does not smoke or drink alcohol. REVIEW OF SYSTEMS: The patient denied fever, chills, or night sweats. No weight loss or gain. She has a headache and some numbness on the right side of her face. No blurry vision. No neck pain. No chest pain, shortness of breath, cough or phlegm production. No nausea or vomiting. No abdominal pain, diarrhea, constipation, difficulty with urination, increased frequency or burning. No skin rashes. PHYSICAL EXAMINATION GENERAL APPEARANCE: This is a 67-year-old lady sitting up in the chair. VITAL SIGNS: Temperature is 98.3, heart rate 69, and saturation on room air 96%. HEENT: Normocephalic and atraumatic. Pupils are round, equal and reactive. Normal eye motion. Tongue to midline. NECK: The neck is supple. LUNGS: Lungs are clear bilaterally. HEART: The heart was regular. ABDOMEN: Abdomen is soft. No tenderness. EXTREMITIES: Extremities revealed no edema. DIAGNOSTIC DATA: White count was 4.2, hemoglobin 14, potassium 3.4, sodium 144, BUN 12, and creatinine 0.67. IMPRESSION: 1. Vertigo - unclear whether it is central or peripheral. There is some numbness on the side of the face, but still more likely it is vestibular in nature. 2. Mild hypokalemia. 3. Sick sinus syndrome. The pacemaker appears to be functioning. PLAN: The patient will be admitted to observation. She will receive meclizine. She will receive also anxiolytics as-needed. We will proceed to do a CT with angiogram of the cerebral arteries to rule out stroke. The patient cannot have an MRI in here because the pacemaker has to be turned to safe mode, and in her case this may result in some undesirable complications. We will do a CT. I did explain to her that she will receive a dye for that. The patient also will continue with her home medications. We will order PT to ensure her safety and mobility. We will go ahead and use SCDs for DVT prophylaxis. The above was explained to the patient, and she is agreeable with the above plan. Dictated By: Eleno Hinton MD Page 2 of 3 JAVIER PIÑA History & Physical JAVIER PIÑA :1955 03/03/23 11:47 JOB #: [id number] Transcribed By: soraya 03/04/23 07:54 Electronically signed by: E-Sign: ELENO HINTON MD 03/08/23 21:56 Update to H&P: [ ] No changes: I have examined the patient and reviewed the H&P and there ar (more content not included)... [facility] 10-02-2022 Hospital Discharge instructions Patient Education 10/02/2022 16:17:40 Acute Pain, Adult Acute Pain, Adult Acute pain is a type of sudden pain that may last for just a few days or for as long as six months. It is often related to an illness, injury, or medical procedure. Acute pain may be mild, moderate, or severe. Pain can make it hard for you to do your normal, daily activities. It can cause anxiety and lead to other problems if it is left untreated. Treatment depends on the cause and severity of your pain. Acute pain usually goes away once your injury has healed or you are no longer ill. Follow these instructions at home: Medicines Take garv-jup-lhxlxdz and prescription medicines only as told by your health care provider. Take the lowest dose of medicine for the shortest amount of time needed to relieve the pain. If you are taking prescription pain medicine: ?Do not stop taking the medicine suddenly. Talk to your health care provider about how and when to discontinue prescription medicine. ?Do not take more pills than told by your health care provider even if your pain is severe. ?Do not take other fuwf-pqg-smagfps pain medicines in addition to prescription pain medicine unless told by your health care provider. ?Ask your health care provider if the medicine requires you to avoid driving or using heavy machinery. ?Ask your health care provider if the medicine can cause constipation. You may need to take these actions to prevent or treat constipation: ?Drink enough fluid to keep your urine pale yellow. ?Eat foods that are high in fiber, such as beans, whole grains, and fresh fruits and vegetables. ?Take brrt-krg-brqpsiv or prescription medicines. ?Limit foods that are high in fat and processed sugars, such as fried or sweet foods. Managing pain, stiffness, and swelling If directed, put ice on the affected area. To do this: Put ice in a plastic bag. Place a towel between your skin and the bag. Leave the ice on for 20 minutes, 2 3 times a day. If directed, apply heat to the affected area as often as told by your health care provider. Use the heat source that your health care provider recommends, such as a moist heat pack or a heating pad. Place a towel between your skin and the heat source. Leave the heat on for 20 30 minutes. Remove the heat if your skin turns bright red. This is especially important if you are unable to feel pain, heat, or cold. You may have a greater risk of getting burned. Activity Rest as told by your health care provider. Return to your normal activities as told by your health care provider. Ask your health care provider what activities are safe for you. General instructions Check your pain level as told by your health care provider. Ask your health care provider if other strategies such as distraction, relaxation, or physical therapies can help your pain. Keep all follow-up visits as told by your health care provider. This is important. Contact a health care provider if: Your pain is not controlled by medicine. Your pain does not improve or gets worse. You have side effects from pain medicines, such as vomiting or confusion. Get help right away if you: Have severe pain. Have trouble breathing. Lose consciousness. Have chest pain or pressure that lasts for more than a few minutes, or if you have other symptoms along with chest pain, including if you: ?Have pain or discomfort in one or both arms, your back, neck, jaw, or stomach. ?Have shortness of breath. ?Break out in a cold sweat. ?Feel nauseous. ?Become light-headed. These symptoms may represent a serious problem that is an emergency. Do not wait to see if the symptoms will go away. Get medical help right away. Call your local emergency services (911 in the [place] Do not drive yourself to the hospital. Summary Acute pain may be mild, moderate, or severe. It usually goes away once your injury has healed or you are no longer ill. Take xqpt-acu-oojizft and prescription medicines only as told by your health care provider. Ask your health care provider if the medicine prescribed to you can cause constipation. Contact a health care provider if your pain is not controlled by medicine. This information is not intended to replace advice given to you by your health care provider. Make sure you discuss any questions you have with your health care provider. Document Released: 10/05/2016 Document Revised: 02/06/2020 Document Reviewed: 02/06/2020 [employer] Patient Education 2020 [employer]. Follow Up Care 10/01/2022 12:18:28 With:Kiarra FLANNERYdirector of home economics, will call you and/or your family after your release from the hospital. Office Hours: Thursday thru Thursday 7:30am - 4pm Address: When:1-2 days [facility] 10-02-2022 Note ORIGINAL EXAMINATION: CARDIAC SPECT10/02/2022 10:16 am CARDIAC SPECT Adenosine Stress Cardiac Gated SPECT/CT, Stress/Rest Clinical Statement: Chest pain with exertion and after eating, hypertension. TECHNIQUE: Adenosine dose: 35.6 mg IV. The patient experienced shortness of breath and flushing upon administration. Radiopharmaceutical (rest and stress doses): Tc-99m sestamibi IV 9 and 27 mCi SPECT acquisition and processing: Images reconstructed into short, vertical long, and horizontal long axis planes. Wall motion evaluation and quantitative LVEF assessment. Concurrent low-dose CT for attenuation correction. COMPARISON: Myocardial perfusion imaging 05/05/2019 HISTORY: ORDERING SYSTEM PROVIDED HISTORY: Reason for Exam: chest pain with exertion, hypertension FINDINGS: There is no scintigraphic LV chamber dilatation or transient ischemic dilatation. TID: 1.2. Previously, 0.91. EDV: 49 mL. Previously, 41 mL. Low-dose CT reveals no pericardial or pleural effusion. 1) Reversible defects: None to suggest ischemia. 2) Fixed defects: None to suggest scarring/infarction. Gated wall motion evaluation reveals no regional or global hypokinesis. The calculated LVEF is greater than 67%. Similar to the prior study measured at 72%. IMPRESSION: Normal appearing left ventricular size and systolic function with no imaging evidence of ischemia or scarring. Calculated LVEF normal, 67%. No wall motion abnormality. No substantial change from the prior study. I have personally reviewed the images of this examination and agree with the resident's findings and interpretation. Interpreted by: Cari Montiel Preliminary Report By: Tram Santamaria Electronically signed By Cari Montiel Dictated Date: 10/02/2022 10:32:46 AM Prelim Date: 10/02/2022 4:52:13 PM Sign Date: 10/02/2022 4:52:13 PM Ordering Provider: [facility] 10-02-2022 Note Discharge Instructions Thank you for allowing [facility] to assist you with your healthcare needs. The following is important discharge information regarding your hospital visit. Your Care Team RADHA HOWARD Your Diagnosis Chest pain What to do next Scheduled Follow-Up Appointments Appointment Type When Where Contact InformationCV Remote Procedure 12/24/2022 08:00 AM EDT [facility] Follow Up with Kiarra FLANNERYdirector of home economics, will call you and/or your family after your release from the hospital. Office Hours: Thursday thru Thursday 7:30am - 4pm When Within 1-2 days Where: The Following Activity and Diet Have Been Ordered for You Discharge Activity - Ordered -- Resume your pre-hospitalization activity, 10/02/22 15:58:00 EST Discharge Diet - Ordered -- No changes were made to your diet during your hospital stay. Please resume your pre hospitalization diet on discharge., 10/02/22 15:58:00 EST The Following Equipment Has Been Ordered for You No qualifying data available. The Following Treatments Have Been Ordered for You Discharge Labs No qualifying data available. Discharge Radiology No qualifying data available. Other Therapies No qualifying data available. Post Acute Orders No qualifying data available. Someone Will Contact You Regarding These Home Health Referrals No home referrals have been ordered for you. No one will call you. Allergies Tape (Irritation) Medications Please ask your primary doctor or pharmacist before taking any other medication not listed, including over the counter drugs, herbal medications, vitamins and or supplements as they may interact with your home medications. What How Much When Instructions Last Dose Changed multivitamin with minerals (Calcium, Magnesium and Zinc oral tablet) 1 tab(s) by mouth Once a day Changed multivitamin with minerals (Centrum) 1 tab(s) by mouth Once a day with a meal Unchanged apixaban (Eliquis 5 mg oral tablet) 1 tab(s) by mouth Two (2) times a day Unchanged buPROPion (Wellbutrin SR 200 mg/ 12 hours oral tablet, extended release) 1 tab(s) by mouth Two (2) times a day Unchanged dilTIAZem (DilTIAZem (Eqv-Cardizem CD) 120 mg/ 24 hours oral capsule, extended release) 1 cap by mouth Once a day What How Much When Comments Stop Taking calcitriol (calcitriol 0.25 mcg oral capsule) 1 cap by mouth Every day Stop Taking calcium citrate (Citracal 500 mg oral tablet) by mouth Two (2) times a day Stop Taking pantoprazole (Protonix 40 mg oral enteric coated tablet) 1 tab(s) by mouth Once a day Stop Taking rOPINIRole (Requip 1 mg oral tablet) 1 tab(s) by mouth Daily at bedtime Please take this list to your next doctor s visit. Bring all medications you take, including over the counter medications, herbals and other supplements with you to your doctor s visit. Patients and families are reminded to discard old lists and to update any records with all medication providers or retail pharmacies. Medication Leaflets diltiazem (oral/injection) (saman bullock) Cardizem, Cartia XT, Dilt-XR, Matzim LA, Taztia XT, Tiadylt ER, Tiazac What is the most important information I should know about diltiazem? You should not use diltiazem if you have very low blood pressure, a serious heart condition such as 'sick sinus syndrome' or 'AV block' (unless you have a pacemaker), or if you have recently had a heart attack and you have a build-up of fluid in your lungs. What is diltiazem? Diltiazem is a calcium channel galindo that is used to treat hypertension (high blood pressure) or angina (chest pain). Diltiazem injection is used to treat certain heart rhythm disorders such as atrial fibrillation or atrial flutter, or dangerously rapid heartbeats (tachycardia). Diltiazem may also be used for purposes not listed in this medication guide. What should I discuss with my healthcare provider before taking diltiazem? You should not use diltiazem if you are allergic to it, or if you have: a serious heart condition such as 'sick sinus syndrome' or 'AV block' (unless you have a pacemaker); very low blood pressure; if you have recently had a heart attack and you have a build-up of fluid in your lungs. You may not be able to receive diltiazem injection if you have certain heart rhythm conditions. Your doctor will test you for these conditions. Tell your doctor if you have ever had: congestive heart failure; low blood pressure; liver disease; or kidney disease. It is not known whether this medicine will harm an unborn baby. Tell your doctor if you are or plan to become . You should not breastfeed while using this medicine. How should I take diltiazem? Follow all directions on your prescription label and read all medication guides or instruction sheets. Your doctor may occasionally change your dose. Use the medicine exactly as directed. Diltiazem oral is taken by mouth. Diltiazem injection is given as an infusion into a vein. A healthcare provider will give you this injection. Your heart rate will be constantly monitored using an electrocardiograph or ECG (sometimes called an EKG). Your blood pressure and other vital signs will also be watched closely. Swallow the tablet or capsule whole and do not crush, chew, or break it. Your blood pressure will need to be checked often and you may need frequent blood tests. You may be given other heart or blood pressure medications to use, including nitroglycerin or a beta-galindo medicine (such as atenolol, carvedilol, metoprolol, propranolol, or sotalol). Use all medications as directed and read all medication guides you receive. Do not change your dose or dosing schedule without your doctor's advice. Keep using your medicine even if you feel well. High blood pressure often has no symptoms. You may need to use blood pressure medicine for the rest of your life. If you need surgery, tell your surgeon you currently use blood pressure medication. You should not stop taking diltiazem suddenly. Stopping suddenly may make your condition worse. Store at room temperature away from moisture, heat, and light. What happens if I miss a dose? Take the medicine as soon as you can, but skip the missed dose if it is almost time for your next dose. Do not take two doses at one time. What happens if I overdose? Seek emergency medical attention or call the Poison Help line at . Overdose symptoms may include slow heartbeats or fainting. What should I avoid while taking diltiazem? Avoid drinking alcohol while taking diltiazem. Avoid taking an herbal supplement containing Patrice's wort. Avoid driving or hazardous activity until you know how this medicine will affect you. Your reactions could be impaired. What are the possible side effects of diltiazem? Get emergency medical help if you have signs of an allergic reaction (hives, difficult breathing, swelling in your face or throat) or a severe skin reaction (fever, sore throat, burning eyes, skin pain, red or purple skin rash with blistering and peeling). Call your doctor at once if you have: chest pain; slow heartbeats; pounding heartbeats or fluttering in your chest; a light-headed feeling, like you might pass out; or heart problems--swelling, rapid weight gain, feeling short of breath. Common side effects may include: swelling; dizziness, weakness; headache; nausea; or rash. This is not a complete list of side effects and others may occur. Call your doctor for medical advice about side effects. You may report side effects to FDA at 8-206-BAH-8172. What other drugs will affect diltiazem? Sometimes it is not safe to use certain medications at the same time. Some drugs can affect your blood levels of other drugs you take, which may increase side effects or make the medications less effective. Many drugs can affect diltiazem. This includes prescription and orrh-rhn-ztsgkhh medicines, vitamins, and herbal products. Not all possible interactions are listed here. Tell your doctor about all your current medicines and any medicine you start or stop using. Where can I get more information? Your pharmacist can provide more information about diltiazem. Remember, keep this and all other medicines out of the reach of children, never share your medicines with others, and use this medication only for the indication prescribed. Every effort has been made to ensure that the information provided by [employer]. ('[employer]') is accurate, up-to-date, and complete, but no guarantee is made to that effect. Drug information contained herein may be time sensitive. [employer] information has been compiled for use by healthcare practitioners and consumers in the [place] and therefore [employer] does not warrant that uses outside of the [place] are appropriate, unless specifically indicated otherwise. [employer] drug information does not endorse drugs, diagnose patients or recommend therapy. [employer] drug information is an informational resource designed to assist licensed healthcare practitioners in caring for their patients and/or to serve consumers viewing this service as a supplement to, and not a substitute for, the expertise, skill, knowledge and judgment of healthcare practitioners. The absence of a warning for a given drug or drug combination in no way should be construed to indicate that the drug or drug combination is safe, effective or appropriate for any given patient. [employer] does not assume any responsibility for any aspect of healthcare administered with the aid of information [employer] provides. The information contained herein is not intended to cover all possible uses, directions, precautions, warnings, drug interactions, allergic reactions, or adverse effects. If you have questions about the drugs you are taking, check with your doctor, nurse or pharmacist. Copyright 1604-7866 [employer]. Version: 15.. Revision Date: 12/12/2020. Education Materials Acute Pain, Adult Acute pain is a type of sudden pain that may last for just a few days or for as long as six months. It is often related to an illness, injury, or medical procedure. Acute pain may be mild, moderate, or severe. Pain can make it hard for you to do your normal, daily activities. It can cause anxiety and lead to other problems if it is left untreated. Treatment depends on the cause and severity of your pain. Acute pain usually goes away once your injury has healed or you are no longer ill. Follow these instructions at home: Medicines Take djfc-fez-hjrpuml and prescription medicines only as told by your health care provider. Take the lowest dose of medicine for the shortest amount of time needed to relieve the pain. If you are taking prescription pain medicine: ? Do not stop taking the medicine suddenly. Talk to your health care provider about how and when to discontinue prescription medicine. ? Do not take more pills than told by your health care provider even if your pain is severe. ? Do not take other jhhp-onk-pevslde pain medicines in addition to prescription pain medicine unless told by your health care provider. ? Ask your health care provider if the medicine requires you to avoid driving or using heavy machinery. ? Ask your health care provider if the medicine can cause constipation. You may need to take these actions to prevent or treat constipation: ? Drink enough fluid to keep your urine pale yellow. ? Eat foods that are high in fiber, such as beans, whole grains, and fresh fruits and vegetables. ? Take jvhq-eqy-oartevg or prescription medicines. ? Limit foods that are high in fat and processed sugars, such as fried or sweet foods. Managing pain, stiffness, and swelling If directed, put ice on the affected area. To do this: Put ice in a plastic bag. Place a towel between your skin and the bag. Leave the ice on for 20 minutes, 2 3 times a day. If directed, apply heat to the affected area as often as told by your health care provider. Use the heat source that your health care provider recommends, such as a moist heat pack or a heating pad. Place a towel between your skin and the heat source. Leave the heat on for 20 30 minutes. Remove the heat if your skin turns bright red. This is especially important if you are unable to feel pain, heat, or cold. You may have a greater risk of getting burned. Activity Rest as told by your health care provider. Return to your normal activities as told by your health care provider. Ask your health care provider what activities are safe for you. General instructions Check your pain level as told by your health care provider. Ask your health care provider if other strategies such as distraction, relaxation, or physical therapies can help your pain. Keep all follow-up visits as told by your health care provider. This is important. Contact a health care provider if: Your pain is not controlled by medicine. Your pain does not improve or gets worse. You have side effects from pain medicines, such as vomiting or confusion. Get help right away if you: Have severe pain. Have trouble breathing. Lose consciousness. Have chest pain or pressure that lasts for more than a few minutes, or if you have other symptoms along with chest pain, including if you: ? Have pain or discomfort in one or both arms, your back, neck, jaw, or stomach. ? Have shortness of breath. ? Break out in a cold sweat. ? Feel nauseous. ? Become light-headed. These symptoms may represent a serious problem that is an emergency. Do not wait to see if the symptoms will go away. Get medical help right away. Call your local emergency services (911 in the [place] Do not drive yourself to the hospital. Summary Acute pain may be mild, moderate, or severe. It usually goes away once your injury has healed or you are no longer ill. Take uoxb-dpb-xipgqdc and prescription medicines only as told by your health care provider. Ask your health care provider if the medicine prescribed to you can cause constipation. Contact a health care provider if your pain is not controlled by medicine. This information is not intended to replace advice given to you by your health care provider. Make sure you discuss any questions you have with your health care provider. Document Released: 10/05/2016 Document Revised: 02/06/2020 Document Reviewed: 02/06/2020 [employer] Patient Education 2020 [employer] Additional Information VACCINATE! IT SAVES LIVES! Members of the community who have not yet received the COVID-19 vaccine and would like to receive it can visit one of [facility] vaccine clinics. There are many vaccine clinic locations within the [facility]. For locations and available times, please visit https://gettheshot.coronavirus.ili o.gov/. It is important to note that some COVID mobile vaccine clinics are held outdoors and may be canceled in rainy or stormy conditions. To learn more about pediatric vaccinations (ages 5-11), we invite you to visit the [facility] webpage. https://www.[facility].org/pag es/2550-Vyiqe-Vicyzlqxjvd-Frequent zz-Btenv-Vkygwjety.html To learn more about the COVID-19 vaccine, we invite you to visit the [employer] website for a list of frequently asked questions. [email or web address] [email or web address]/Patient c-one-Qwdoijje/qygzx-Elxanny-Efxck ently_Asked-Questions.pdf [facility] Patient Portal Access Instructions: Stay connected with your healthcare team and access your personal medical information anytime with the [facility] Patient Portal.If you would like a full copy of your medical records, please contact the [facility] Medical Records Department, Thursday through Thursday between 8a.m. and 4:30p.m. Please follow the directions below to access the portal: 1.Access the email account you provided upon registration to the [facility].2.Look for an invitation email from [facility].3.Open the email and access the invitation link: Accept Invitation to [facility].Fill in the required wolfe to create your account. Sign into www.[employer] with your username and password that you created in the above steps to stay up to date. You can then view a summary of results, a summary of your visits, and the ability to download your summaries to your computer or send the information securely to a physician. Remember that your healthcare information is confidential, so carefully consider who you will allow to register on the [facility] Patient Portal for access to your information. You can also access the [facility] Patient Portal on the [employer] monie. Simply click on Health Records under Health Data and then click on the [employer] logo. HOW TO SAFELY DISPOSE OF PRESCRIPTION MEDICATIONS Please use one of the following methods to safely dispose of your unused medications. 1.Use a drug disposal kit: the drug disposal pouch allows you to safely discard your old and unused drugs. Ask your nurse to give you one when you are discharged.2.Visit a local take-back location: Many local pharmacies and police departments have programs that collect old and unwanted prescription drugs. Call your local pharmacy or go to http://bit.DataVote/0N6Eo3l to find one close to you.3.Make use of household items: Use cat litter or old coffee grounds to dispose medications if other options are not available. Mix your drugs with these household products, seal them in an airtight container and throw it into the garbage. Call [facility]: [phone] to be sure your drugs can be disposed of in this way. Some medicines may require a different approach.4.Never flush your medications down the toilet. IF YOU HAVE BEEN PRESCRIBED AN OPIOID FOR PAIN If you have been prescribed an opioid (such as hydrocodone, oxycodone or morphine), it is critical to understand the possible side effects and risks of opioid pain medications. Even when taken as directed, opioids can have several side effects including: Tolerance, meaning you might need to take more of a medication for the same pain relief. Nausea, vomiting and/or constipation. Sleepiness, dizziness, dry mouth, confusion, depression or itching. Physical dependence, meaning you have withdrawal symptoms when a medication is stopped, can develop within a few days. KNOW YOUR RESPONSIBILITIES It is important to know exactly how much and how often to take the opioid pain medications you are prescribed. Never take opioids in higher amounts or more often than prescribed. Do not combine opioids with alcohol or other drugs that cause drowsiness, such as benzodiazepines, also known as benzos, including diazepam and alprazolam, muscle relaxants or sleep aids. Never sell or share prescription opioids. This is illegal. Store opioids in a secure place and out of reach of others (including children, family, friends and visitors). The last page of this document has been signed and retained as a CHART COPY. Signatures Patient Education Materials Acute Pain, Adult Medication Leaflets diltiazem (oral/injection) My discharge plan and instructions have been reviewed and explained to me and I,JAVIER PIÑA understand my current condition and have read and understand these discharge instructions. I have received a written copy of the plan/instructions. If I have questions, I am aware that I should contact my doctor. 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 Please resume your pre hospitalization diet on discharge., 10/02/22 15:58:00 EST Discontinued: Vitamin D with Minerals oral tablet, chewable,Dose = 1 tab(s), Chewed, qDay, # 30 tab(s), 0 Refill(s) Hospital Course Patient is a 66-year-old female female with a past medical history of paroxysmal atrial fibrillation, GERD, anxiety/depression presenting to the hospital for chest pain. Patient had troponins trended in the emergency department x2 with both being less than 2.5 with nonischemic EKGs. Patient underwent nuclear medicine stress test that showed an unremarkable stress EKG and nuclear medicine images. Patient be discharged home on her home medications without changes. Patient instructed to follow-up with outpatient cardiology/PCP. Allergies Tape (Irritation) Procedures None Consults No qualifying data available. Imaging Results and Diagnostics XR Chest 1 View Result Date: October 01, 2022 Verified By: OMAR APREDES DO CLINICAL STATEMENT: IMPRESSION: 1. No evidence of acute cardiopulmonary process. Physical Exam Vitals and Measurements T: 36.7 C (Oral) TMIN: 36.6 C (Oral) TMAX: 36.7 C (Oral) HR: 72(Monitored) RR: 18 BP: 145/67 SpO2: 97% HT: 160 cm WT: 61.6 kg BMI: 24.06 Weight Dosing Weight: 61.6 kg (10/02/22) General Appearance: Elderly female, pleasant, no acute distress Head: NCAT Cardiac: RRR. No M/G/R Lungs: CTAB Abdomen: NT, ND. BS + Extremities: DP intact. No LE edema Skin: No rashes or lesions Psychiatric: A&O X3. Answers questions appropriately Pending Labs and Studies None Code Status Code Status - Ordered -- 10/01/22 23:53:00 EST, Full Code, Constant Order Admission Date 10/01/2022 Discharge Date 10/02/2022 Patient Instructions Patient instructed to follow-up with outpatient cardiology/PCP, medication changes as per below. Medications Changed multivitamin with minerals (Calcium, Magnesium and Zinc oral tablet)1 tab(s) by mouth once a day. multivitamin with minerals (Centrum)1 tab(s) by mouth once a day with a meal. Unchanged apixaban (Eliquis 5 mg oral tablet)1 tab(s) by mouth two (2) times a day. buPROPion (Wellbutrin SR 200 mg/12 hours oral tablet, extended release)1 tab(s) by mouth two (2) times a day. dilTIAZem (DilTIAZem (Eqv-Cardizem CD) 120 mg/24 hours oral capsule, extended release)1 cap by mouth once a day. Refills: 11. Discontinued calcitriol (calcitriol 0.25 mcg oral capsule)1 cap by mouth every day. calcium citrate (Citracal 500 mg oral tablet)by mouth two (2) times a day. pantoprazole (Protonix 40 mg oral enteric coated tablet)1 tab(s) by mouth once a day. rOPINIRole (Requip 1 mg oral tablet)1 tab(s) by mouth daily at bedtime. Follow Up Follow Up with Kiarra FLANNERYdirector of home economics, will call you and/or your family after your release from the hospital. Office Hours: Thursday thru Thursday 7:30am - 4pm When Within 1-2 days Where: Follow Up Appointments No qualifying data available. Follow Up Labs/Studies Discharge Labs No Follow-up Labs Discharge Studies No Follow-up Studies Discharge Diet Discharge Diet - Ordered -- No changes were made to your diet during your hospital stay. Please resume your pre hospitalization diet on discharge., 10/02/22 15:58:00 EST Discharge Activity Discharge Activity - Ordered -- Resume your pre-hospitalization activity, 10/02/22 15:58:00 EST Condition on Discharge Good Discharge Disposition Home Information Provided To Patient and spouse Digitally Signed by JESSICA SHEFFIELD DO on 10/02/2022 04:04 PM [facility] 10-02-2022 Note Date of Service Date: 10/02/2022 Procedure: Adenosine chemical stress test Patient underwent a pharmacologic stress test using adenosine. Total adenosine dose of 35.6 mg was given as infusion. The patient had a baseline heart rate of 71 bpm, which peaked at 84 bpm. The patient had a baseline blood pressure of 138/79 mmHg and and it changed to 176/89 mmHg after the adenosine administration. The patient did experience shortness of breath, chest heaviness and tingling sensation, which all resolved at the end of the test. The patient's baseline EKG showed normal sinus rhythm. During the stress, there were no changes on EKG suggestive of ischemia. However, T wave inversions in the inferior leads were noted, clinical correlation advised. IMPRESSION: EKG portion of the adenosine stress test is negative for inducible ischemia. Results of the nuclear portion of the stress test will be reported separately. The EKGs were also reviewed by the attending physician. See addendum to this note by the attending physician for additional comments. Digitally Signed by MONIQUE DAVEY MD on 10/02/2022 09:58 AM [facility] 10-02-2022 Note ORIGINAL EXAMINATION: CARDIAC SPECT10/02/2022 10:16 am CARDIAC SPECT Adenosine Stress Cardiac Gated SPECT/CT, Stress/Rest Clinical Statement: Chest pain with exertion and after eating, hypertension. TECHNIQUE: Adenosine dose: 35.6 mg IV. The patient experienced shortness of breath and flushing upon administration. Radiopharmaceutical (rest and stress doses): Tc-99m sestamibi IV 9 and 27 mCi SPECT acquisition and processing: Images reconstructed into short, vertical long, and horizontal long axis planes. Wall motion evaluation and quantitative LVEF assessment. Concurrent low-dose CT for attenuation correction. COMPARISON: Myocardial perfusion imaging 05/05/2019 HISTORY: ORDERING SYSTEM PROVIDED HISTORY: Reason for Exam: chest pain with exertion, hypertension FINDINGS: There is no scintigraphic LV chamber dilatation or transient ischemic dilatation. TID: 1.2. Previously, 0.91. EDV: 49 mL. Previously, 41 mL. Low-dose CT reveals no pericardial or pleural effusion. 1) Reversible defects: None to suggest ischemia. 2) Fixed defects: None to suggest scarring/infarction. Gated wall motion evaluation reveals no regional or global hypokinesis. The calculated LVEF is greater than 67%. Similar to the prior study measured at 72%. IMPRESSION: Normal appearing left ventricular size and systolic function with no imaging evidence of ischemia or scarring. Calculated LVEF normal, 67%. No wall motion abnormality. No substantial change from the prior study. I have personally reviewed the images of this examination and agree with the resident's findings and interpretation. Interpreted by: Cari Montiel Preliminary Report By: Tram Santamaria Electronically signed By Cari Montiel Dictated Date: 10/02/2022 10:32:46 AM Prelim Date: 10/02/2022 4:52:13 PM Sign Date: 10/02/2022 4:52:13 PM Ordering Provider: [facility] 10-02-2022 Note Date of Service Date: 10/02/2022 Procedure: Adenosine chemical stress test Patient underwent a pharmacologic stress test using adenosine. Total adenosine dose of 35.6 mg was given as infusion. The patient had a baseline heart rate of 71 bpm, which peaked at 84 bpm. The patient had a baseline blood pressure of 138/79 mmHg and and it changed to 176/89 mmHg after the adenosine administration. The patient did experience shortness of breath, chest heaviness and tingling sensation, which all resolved at the end of the test. The patient's baseline EKG showed normal sinus rhythm. During the stress, there were no changes on EKG suggestive of ischemia. However, T wave inversions in the inferior leads were noted, clinical correlation advised. IMPRESSION: EKG portion of the adenosine stress test is negative for inducible ischemia. Results of the nuclear portion of the stress test will be reported separately. The EKGs were also reviewed by the attending physician. See addendum to this note by the attending physician for additional comments. Digitally Signed by MONIQUE DAVEY MD on 10/02/2022 09:58 AM [facility] 10-01-2022 Note ORIGINAL EXAMINATION: ONE XRAY VIEW OF THE CHEST 10/01/2022 12:32 pm COMPARISON: 07/29/2021 HISTORY: ORDERING SYSTEM PROVIDED HISTORY: Reason for Exam: pain FINDINGS: Left subclavian approach pacemaker and intracardiac leads are noted. Normal heart size. Lungs are clear without evidence of pneumothorax, pleural effusion, vascular congestion, or focal airspace consolidation. Degenerative changes are seen of the spine and acromioclavicular joints. Surgical changes are present of the left humerus relating to rotator cuff repair IMPRESSION: 1. No evidence of acute cardiopulmonary process. Interpreted by: Omar Paredes DO Preliminary Report By: Omar Paredes DO Electronically signed By Omar Paredes DO Dictated Date: 10/01/2022 12:44:18 PM Prelim Date: 10/01/2022 12:45:09 PM Sign Date: 10/01/2022 12:45:09 PM Ordering Provider: [facility] 10-01-2022 Note ORIGINAL EXAMINATION: ONE XRAY VIEW OF THE CHEST 10/01/2022 12:32 pm COMPARISON: 07/29/2021 HISTORY: ORDERING SYSTEM PROVIDED HISTORY: Reason for Exam: pain FINDINGS: Left subclavian approach pacemaker and intracardiac leads are noted. Normal heart size. Lungs are clear without evidence of pneumothorax, pleural effusion, vascular congestion, or focal airspace consolidation. Degenerative changes are seen of the spine and acromioclavicular joints. Surgical changes are present of the left humerus relating to rotator cuff repair IMPRESSION: 1. No evidence of acute cardiopulmonary process. Interpreted by: Omar Paredes DO Preliminary Report By: Omar Paredes DO Electronically signed By Omar Paredes DO Dictated Date: 10/01/2022 12:44:18 PM Prelim Date: 10/01/2022 12:45:09 PM Sign Date: 10/01/2022 12:45:09 PM Ordering Provider: [facility] 07-29-2021 Hospital Discharge instructions Patient Education 07/29/2021 15:55:57 3- Pacemaker/ICD generator replacement (07/2018) (Custom) PACEMAKER/ICD GENERATOR REPLACEMENT Discharge Instructions WOUND CARE DO NOT place any ointments, creams, powders or lotions on the incision. Call your pacemaker/ICD doctor s office immediately if you have: ?Increased redness ?Drainage from the incision ?Opening of the incision ?Increased pain, warmth or swelling on or around the site ?Increased temperature above 100.5 Call if you experience dizziness, palpitations or a fast or slow heart rate If an Aquacel Ag surgical dressing has been applied: ?You may take a shower as long as the dressing is sealed well to your skin. ?You may remove the bandage in 7 days: To do this, press down on your skin with one hand and carefully lift an edge of the bandage with your other hand. Stretch the dressing to break the adhesive seal and gently pull it off. ?If the bandage becomes loose or falls off in less than 5 days, you will not be able to take any showers or baths. You must keep the incision dry for the first 5 days after your procedure. DO NOT clean the incision with any soap, water, peroxide or alcohol. Leave it dry and uncovered for 5 days, then you may shower using soap and water. Wear loose fitting clothes over the incisional site to avoid irritation until it is healed. If you do not have a dressing: DO NOT shower or get the incision wet for 5 days. DO NOT clean the incision with any soap, water, peroxide or alcohol. Leave it dry and uncovered for 5 days, then you may shower using soap and water. Wear loose fitting clothes over the incisional site to avoid irritation until it is healed. MEDICATIONS Take antibiotics before dental work as prescribed by your physician (if prescribed) Take medications as directed until prescription is finished Avoid alcohol while taking medications You may take Tylenol (acetaminophen) for incisional pain or discomfort. ACTIVITY Avoid activity that requires pushing or pulling for the first week. Please move your operation side arm freely after the first week. Document Released: 09/21/2006 Document Revised: 09/07/2013 Document Reviewed: 09/22/2014 [employer] Patient Information 2015 [employer]. This information is not intended to replace advice given to you by your health care provider. Make sure you discuss any questions you have with your health care provider. Follow Up Care 07/29/2021 11:23:21 With:DEVORAH MADRID MD Address: [phone] When: Unknown Comments:Call office for follow-up appointment [facility] Evaluation + Plan note Future Appointments Appointment Date:08/12/2021 01:30:00 PM Scheduled Provider: Location:[facility] Appointment Type:CV OV Incision Check Appointment Date:11/05/2021 01:30:00 PM Scheduled Provider: Location:[facility] Appointment Type:CV Office Procedure PPM [facility] Evaluation + Plan note Future Appointments Appointment Date:12/24/2022 08:00:00 AM Scheduled Provider: Location:[facility] Appointment Type:CV Remote Procedure HM Diagnostic Tests PendingAPTT Panel 10/02/22 [facility] Hospital course Narrative No data available for this section [facility] Summary Purpose Family History vascular dementia Status:Active Comments:Isaiah ramirez vascular dementia Status:Active Comments:Isaiah ramirez Advance Directives No Advanced Directives Records FoundNo Advanced Directives Records FoundNo Advanced Directives Records FoundNo Advanced Directives Records FoundNo Advanced Directives Records FoundNo Advanced Directives Records Found Additional Source Comments INFORMATION SOURCE (unrecogn ized section and content) DATE CREATED AUTHOR AUTHOR'S ORGANIZ ATION 03/21/2021 [facility] DATE CREATED AUTHOR AUTHOR'S ORGANIZ ATION 01/03/2023 [facility] ([place] DATE CREATED AUTHOR AUTHOR'S ORGANIZ ATION 09/07/2023 [facility] DATE CREATED AUTHOR AUTHOR'S ORGANIZ ATION [facility] DATE CREATED AUTHOR AUTHOR'S ORGANIZ ATION 09/14/2023 [facility] [place] Care Team (unrecognized sect ion and content) Care Team Personnel Name: DEVORAH MADRID MD Position: P4 Physician - Cardiology Member Role: Enrichment Specialist Address: Address: [address] [facility] [address] [facility] [place] [address]- Name: RADHA HOWARD Member Role: Primary Care Physician Address: Address: [address] [place] [address] [address] [place], [place] [address] Name: MICHELLE STEEN PA-C Position: ED Physician Video Game Maker Member Role: ED PA Address: Address[address] [facility] [place] [address]- Name: ROCHELLE OWENS MD Position: ED Physician Member Role: ED Physician Address: Address: [address] [facility] [place] [address]- Care Team Related Persons Name: HAVEN PIÑA Source Comments (unrecognize d section and content) In the event this informatio n is protected by the Federal Confidentiality of Alcohol and Drug Abuse Patient Records regulations: The Federal rules restrict any use of the information to criminally investigate or prosecute any alcohol or drug abuse patient.[facility] Care Teams (unrecognized sec tion and content) FOR RECORDS PERTAINING TO PATIENTS WHO ARE OR HAVE BEEN ENROLLED IN A CHEMICAL DEPENDENCY/SUBSTANCEABUSE PROGRAM, SOME INFORMATION MAY BE OMITTED. This clinical summary was aggregated from multiple sources. Caution should be exercised in using it in the provision of clinical care. This summary normalizes information from multiple sources, and as a consequence, information in this document may materially change the coding, format and clinical context of patient data. In addition, data may be omitted in some cases. CLINICAL DECISIONS SHOULD BE BASED ON THE PRIMARY CLINICAL RECORDS. [facility]. provides no warranty or guarantee of the accuracy or completeness of information in this document.
== END 2023-10-20 23:59 | disposition home or self-care (01) ==
LOC: LABSPEC 14:59
PROVIDERS: PCP Physician Assistant; Referring Provider Surgery; Visit Provider Surgery
DX: E04.1 Nontoxic single thyroid nodule (principal)
CPT/HCPCS: 88108; 88305; 88313

== ENCOUNTER → 2024-09-26 | Outpatient (CLI) | payer MEDICARE, SELFPAY ==
--- NOTE | 2024-09-26 12:04 | US_ITS ---
STUDY: THYROID ULTRASOUND REASON FOR EXAM: Female, 68 years old. Follow-up TECHNIQUE: Ultrasound evaluation of the thyroid was performed with real-time and static de la rosa-scale imaging. COMPARISON: 09/10/2023 FINDINGS: RIGHT LOBE: The right lobe of the thyroid gland measures 4.3 x 1.5 x 1.5 cm. There is a homogeneous echotexture. Nodule 1: No change in the 20 x 12 x 10 mm solid isoechoic water than tall smoothly marginated nodule with no echogenic foci (03) in the mid right lobe and follow-up ultrasound is recommended in 1 year. LEFT LOBE: The left lobe of the thyroid gland measures 4.6 x 1.4 x 1.4 cm. There is a homogeneous echotexture. Nodule 2: No change in the 6 x 4 x 6 mm solid hypoechoic wider than tall smoothly marginated nodule with no echogenic foci (TR 4) in the superior left lobe consistent with an adenoma. Nodule 3: No change in the 5 x 4 x 5 mm solid hypoechoic wider than tall smoothly marginated nodule with no echogenic foci (TR 4) in the mid left lobe consistent with an adenoma. Nodule 4: No change in the 15 x 7 x 9 mm solid hypoechoic wider than tall ill-defined margin nodule with macrocalcifications (TR 4) in the medial left lobe near the isthmus for which ultrasound-guided biopsy is recommended for never performed. ISTHMUS: The isthmus measures 4 mm thick. . The regional lymph nodes are normal. US/Thyroid IMPRESSION: No change in multinodular thyroid gland. Biopsy of nodule in the medial left lobe is recommended if never performed. Follow-up ultrasound is recommended in 1 year. Electronically Signed: Unruly Ayala MD at 9:42 EST ,
== END | disposition home or self-care (01) ==
PROVIDERS: PCP Physician Assistant; Referring Provider Surgery; Visit Provider Surgery
DX: E04.1 Nontoxic single thyroid nodule (principal)
CPT/HCPCS: 76536

== ENCOUNTER → 2024-10-03 | Outpatient (CLI) | payer MEDICARE, SELFPAY ==
--- NOTE | 2024-10-03 07:51 | BI_ITS ---
MAMMOGRAPHY - BILATERAL SCREENING 3-D TOMOSYNTHESIS REASON FOR EXAM: Female, 68 years old. SCREENING PERTINENT HISTORY: No significant family history. TECHNIQUE: 2-D mammograms and 3-D Tomosynthesis of the breast (s) were performed. CAD was performed. COMPARISON: 10/01/2023 FINDINGS: The breast composition is composed of scattered fibroglandular density. Scattered benign calcifications are seen. No dense spiculated masses or suspicious microcalcifications are identified. No architectural distortion is identified. There is no skin thickening or retraction. There has been no significant change since the prior study. BI/SCRN MAMM (CAD)W/JOSHUA BILAT IMPRESSION: No mammographic signs of malignancy. Routine yearly mammograms recommended. ASSESSMENT CATEGORY: BIRADS Category 1: Negative. A letter regarding these results will be sent to the patient by the facility within 30 days. FOLLOW UP RECOMMENDATION: Yearly follow up mammogram recommended. (A) Approximately 10% of breast cancers are not detected by mammography. A normal mammogram should not delay biopsy of a clinically suspicious abnormality. Electronically Signed: Unruly Ayala MD at 20:35 EST ,
== END | disposition home or self-care (01) ==
LOC: OPBI 07:49
PROVIDERS: PCP Physician Assistant; Referring Provider Physician Assistant; Visit Provider Physician Assistant
DX: Z12.31 Encounter for screening mammogram for malignant neoplasm of breast (principal)
CPT/HCPCS: 77063; 77067

== ENCOUNTER 2024-12-21 09:55 | Outpatient (CLI) | payer MEDICARE, SELFPAY ==
[2024-12-21 10:04] VITALS: BP 120/74; PULSE 87; RESP 16; TEMP 35.9; O2SAT 97; BMI 25.9
[2024-12-21] MEDS: 0.9% Normal Saline (100mL Bag) 100 ML 15 ML IV (10:20)
[2024-12-21] MEDS: Zoledronic Acid 5 MG 100 ML 300 MG IV (10:20)
[2024-12-21] MEDS: 0.9% NaCl Peripheral Flush Adult IV (10:20)
[2024-12-21 11:08] VITALS: BP 134/72; PULSE 72; RESP 16; TEMP 36.1; O2SAT 99
== END 2024-12-21 23:59 | disposition home or self-care (01) ==
LOC: MEDOUTP 09:56
PROVIDERS: PCP Physician Assistant; Referring Provider Internal Medicine Endocrinology, Diabetes & Metabolism; Visit Provider Internal Medicine Endocrinology, Diabetes & Metabolism
DX: M81.0 Age-related osteoporosis without current pathological fracture (principal)
CPT/HCPCS: 96365; A4216; J3489